=== PATIENT | male | born 1940 | race Caucasian/White ===

== ENCOUNTER 2020-04-18 17:55 | Inpatient (IN) | payer MEDICARE, BC, SELFPAY ==
[2020-04-18 17:55] VITALS: BP 159/76; PULSE 75; RESP 16; TEMP 37.1; O2SAT 98; BMI 25.7
--- NOTE | 2020-04-18 18:10 | ECG_ITS ---
APPROVED REPORT Exam: Resting ECG HR:75 bpm ECG Measurements Heart Rate 75 AXES MT 238 P 27 QRSd 102 QRS 60 QT 406 T -36 QTc 453 Conclusion Sinus rhythm with 1st degree AV block Nonspecific ST and T wave abnormality Abnormal ECG Electronically signed by : Mark Rothman, 04/19/2020 08:03:12
--- NOTE | 2020-04-18 18:12 | CT_ITS ---
PROCEDURE: CT HEAD/BRAIN WO CON CLINICAL INDICATION: PAIN Severe headache COMPARISON: No exams were available for comparison TECHNIQUE: Axial images obtained. All CT scans at the facility use one or more dose reduction, viz: automated exposure control, ma/kV adjustment per patient size (including targeted exams where dose is matched to indication, i.e. head), or iterative reconstruction technique. FINDINGS: No midline shift, mass effect, intracranial hemorrhage, hydrocephalus, or extra-axial fluid collection is evident. There is generalized atrophy with hypoattenuation of the periventricular white matter consistent with microangiopathic changes.. There is calcification of the left vertebral artery and of the carotid arteries in the cavernous region. The calvarium has an unremarkable appearance. There is sclerosis of the left mastoid air cells with mild opacification suggesting chronic inflammatory changes. There is also bilateral pinna calcification. Mild mucosal thickening ethmoid sinuses. IMPRESSION: No acute intracranial finding Dictated by: Vincent Rebollar MD 04/19/2020 05:16 Vincent Rebollar MD in [facility] 04/19/2020 05:16
--- NOTE | 2020-04-18 18:12 | CT_ITS ---
PROCEDURE: CT CERVICAL SPINE WO CON CLINICAL INDICATION: PAIN Neck pain COMPARISON: No exams were available for comparison TECHNIQUE: Axial images obtained with sagittal and coronal reformats. All CT scans at the facility use one or more dose reduction, viz: automated exposure control, ma/kV adjustment per patient size (including targeted exams where dose is matched to indication, i.e. head), or iterative reconstruction technique. Axial spiral CT scanning performed of the cervical spine beginning at the base of the skull and continuing to the upper T-spine. 3-D multiplanar reconstruction with 3-D manipulation of volumetric data set in image rendering was completed by the radiologist and/or technologist with the supervision of the radiologist on independent workstation. FINDINGS: There is straightening cervical lordosis. No fracture or dislocation is evident. Mild prominent calcification of the transverse ligament region at C1-C2. C2-C3: Degenerative disc disease with mild partially calcified bulging disc. C3-C4: Severe degenerative disc disease with endplate hypertrophic changes with canal stenosis and bilateral lateral recess and foraminal narrowing secondary to disc osteophyte complexes right slightly larger than left. C4-C5: Degenerative disc disease with bulging disc with facet and ligamentum hypertrophy with bilateral foraminal narrowing. 3 mm anterolisthesis of C4. C5-C6: Degenerative disc disease with partially calcified bulging disc with borderline canal stenosis and bilateral foraminal narrowing. C6-C7: Degenerative disc disease with bulging disc slightly eccentric toward the left with bilateral foraminal narrowing left greater than right and canal stenosis. There is a Schmorl's node along the inferior endplate of C6. C7-T1: Degenerative disc disease. There is an old fracture involving the tip spinous process T1 Lung apices are clear. The thyroid gland is enlarged and heterogeneous. The right lobe is larger than the left with ill-defined nodule on the right at 1.7 cm and may be better evaluated with ultrasound. IMPRESSION: 1. No acute fracture. 2. Multilevel cervical spondylosis with degenerative disc disease, uncovertebral and facet hypertrophy with bulging disc resulting in canal stenosis lateral recess and foraminal narrowing. Please see above for detailed description at each level. 3. Old fracture involving the tip of the spinous process of T1 Dictated by: Vincent Rebollar MD 04/19/2020 05:24 Vincent Rebollar MD in [facility] 04/19/2020 05:24
--- NOTE | 2020-04-18 18:13 | XR_ITS ---
PROCEDURE: XR CHEST PORTABLE CLINICAL HISTORY: GENERALIZED FATIQUE COMPARISON: No exams were available for comparison FINDINGS: The cardiomediastinal silhouette and pulmonary vascularity are within normal limits. The lungs are clear without infiltrates, suspicious nodules, or pleural effusions. No acute bony abnormalities. IMPRESSION: No acute findings. Dictated by: Vincent Rebollar MD 04/19/2020 07:15 Vincent Rebollar MD in [facility] 04/19/2020 07:15
[2020-04-18 18:15] VITALS: BP 162/67; PULSE 73; O2SAT 99
--- NOTE | 2020-04-18 18:28 | PC.NURSE ---
Rad at bedside
[2020-04-18 18:30] VITALS: BP 157/63; PULSE 70; RESP 20; O2SAT 97
[2020-04-18 18:30] LABS: Basophils % 0.5 % (0.1-2.0); Eosinophils # 0.1 K/mm3 (0.0-0.4); Eosinophils % 1.4 % (0.1-12.0); Hematocrit 27.4 % (42.0-52.0); Hemoglobin 8.8 g/dL (14.1-18.0); Lymphocytes # 0.6 K/mm3 (0.7-4.5); Mean Corpuscular Hemoglobin 30.6 pg (27.0-31.2); Mean Corpuscular Volume 95.7 fl (80-94); Mean Platelet Volume 8.7 fl (7.4-10.4); Monocytes # 0.4 K/mm3 (0.1-1.0); Neutrophils # 3.4 K/mm3 (1.8-7.8); Platelet Count 135 K/mm3 (142-424); Red Blood Count 2.87 M/mm3 (4.60-6.20); Red Cell Distribution Width 13.2 % (11.5-17.5); White Blood Count 4.4 K/mm3 (4.8-10.8)
[2020-04-18 18:36] LABS: Anion Gap 13.3 mEq/L (5-15); Blood Urea Nitrogen 41 mg/dl (9-20); Calcium 8.5 mg/dl (8.4-10.2); Carbon Dioxide 20 mmol/L (22.0-30.0); Chloride 106 mmol/L (98-107); Creatinine Clearance Estimated 26 mL/min (50-200); Estimated Glomerular Filt Rate 22 ml/min (>60); GFR (African American) 27 ML/MIN (>60); Glucose 236 mg/dl (74-100); Potassium 4.3 mmoL/L (3.5-5.1); Sodium 135 mmol/L (136-145)
--- NOTE | 2020-04-18 18:37 | PC.NURSE ---
Pt to rad.
[2020-04-18 18:51] LABS: Troponin I 0.56 ng/ml (0.00-0.034)
[2020-04-18 19:07] VITALS: BP 147/63; PULSE 73; O2SAT 98
[2020-04-18 19:29] LABS: Coronavirus 19 IgG Antibody Negative (Negative); Coronavirus 19 IgM Antibody Negative (Negative)
--- NOTE | 2020-04-18 20:33 | HMH.EDWEAK ---
ED Disposition Clinical Impression: Non-STEMI (non-ST elevated myocardial infarction) Anemia Qualifiers: Anemia type: due to chronic kidney disease Chronic kidney disease stage: stage 4 (severe) Qualified Code(s): N18.4 - Chronic kidney disease, stage 4 (severe); D63.1 - Anemia in chronic kidney disease Diabetes mellitus Qualifiers: Diabetes mellitus type: type 2 Diabetes mellitus intermediate project manager insulin use: unspecified intermediate project manager insulin use status Diabetes mellitus complication status: with other specified complication Qualified Code(s): E11.69 - Type 2 diabetes mellitus with other specified complication Disposition: Admitted as Observation Condition on Discharge: Good Referrals: Tate Rivero [Primary Care Provider] - - Critical Care Critical Care Time: No Attestation: On 04/18/20, the high probability of a clinically significant, sudden or life threatening deterioration of the following system(s) required my full and direct attention, intervention and personal management. The time I documented below is in addition to time spent performing reported procedures but includes the following listed in this critical care notation. Medical Decision Making - Medical Records Medical records reviewed: Yes: I reviewed the patient's medical records. - Ferm[place] Inquiry Pt receiving controlled substance: No Vital Signs: 04/18/20 17:55 04/18/20 18:15 04/18/20 18:30 Temperature 98.8 F Temperature Source Oral Pulse Rate [Radial] 75 73 70 Respiratory Rate 16 20 Blood Pressure [Right Arm] 159/76 H 162/67 H 157/63 H Blood Pressure Mean [Right Arm] 103 98 94 Blood Pressure Source [Right Arm] Automatic Cuff Automatic Cuff Blood Pressure Position [Right Arm] Sitting Sitting 02 Sat by Pulse Oximetry 98 99 97 Oxygen Delivery Method Room Air Room Air Room Air 04/18/20 19:07 Temperature Temperature Source Pulse Rate [Radial] 73 Respiratory Rate Blood Pressure [Right Arm] 147/63 H Blood Pressure Mean [Right Arm] 91 Blood Pressure Source [Right Arm] Automatic Cuff Blood Pressure Position [Right Arm] Sitting 02 Sat by Pulse Oximetry 98 Oxygen Delivery Method Room Air - Lab Data Lab results reviewed: Yes: I reviewed the patient's lab results. Lab Results 04/18/20 18:15: WBC 4.4 L, RBC 2.87 L, Hgb 8.8 L, Hct 27.4 L, MCV 95.7 H, MCH 30.6, MCHC 32.0, RDW 13.2, Plt Count 135 L, MPV 8.7, Neut % (Auto) 77.0, Lymph % (Auto) 13.0, Trimble % (Auto) 8.0, Eos % (Auto) 1.4, Baso % (Auto) 0.5, Neut # (Auto) 3.4, Lymph # (Auto) 0.6 L, Trimble # (Auto) 0.4, Eos # (Auto) 0.1, Baso # (Auto) 0.0 04/18/20 18:15: Sodium 135 L, Potassium 4.3, Chloride 106, Carbon Dioxide 20 L, Anion Gap 13.3, BUN 41 H, Creatinine 2.80 H, Estimated Creat Clear 26, Estimated GFR 22 L, Est GFR ( Amer) 27 L, Glucose 236 H, Calcium 8.5, Troponin I 0.56 H 04/18/20 18:15: SARS-CoV-2 IgG Ab (Rapid) Negative, SARS-CoV-2 IgM Ab (Rapid) Negative 04/18/20 18:15: TSH 0.80, Thyroxine (T4) 5.6 04/18/20 21:27: Troponin I 0.60 H Result diagrams: 04/18/20 18:15 04/18/20 18:15 Orders (Tests/Meds): ED MEDICATIONS Discontinued Medications Generic Name Dose Route Start Last Admin Trade Name Freq PRN Reason Stop Dose Admin Aspirin 324 mg 04/18/20 19:04 04/18/20 19:05 Aspirin 81mg Chewable Tablet PO 04/18/20 19:05 324 mg ONCE ONE Administration ORDERS Category Date Time Status CT cervical spine wo con Stat Cat Scan 04/18/20 18:[address] head/brain wo con Stat Cat Scan 04/18/20 18:12 Taken XR chest portable Stat Exams 04/18/20 18:13 Taken Troponin I Q3H Lab 04/19/20 00:15 Ordered - Radiology Data #1 Image(s): Chest Image Reviewed: Yes I reviewed the patient's radiology image Preliminary Findings: Abnormal (cm ) - CT Data CT Scan: Head, C-Spine Time Received: 22:[address] Reviewed: Yes: I have viewed the radiologist's interpretation Preliminary Findings: Abnormal (abn djd with stenosis and facet/foraminal changes ) - ECG Da
[2020-04-18 21:04] LABS: T4 (Thyroxine) 5.6 ug/dl (5.53-11.0)
--- NOTE | 2020-04-18 22:04 | PC.NURSE ---
Trop called from LAB reported to Dr Patton
--- NOTE | 2020-04-18 22:08 | PC.NURSE ---
Dr Patton speaking with Dr Carreno with pt trop
--- NOTE | 2020-04-18 22:50 | PC.NURSE ---
Dr Patton spoke with Dr Farley for admission
[2020-04-18 23:17] LABS: Alanine Aminotransferase 16 U/L (12-78); Albumin Level 3.6 g/dl (3.5-5.0); Alkaline Phosphatase 74 U/L (38-126); Aspartate Amino Transferase 23 U/L (17-59); Bilirubin,Direct 0.1 mg/dl (0.0-0.4); Bilirubin,Indirect 0.2 mg/dL (0.0-0.9); Bilirubin,Total 0.3 mg/dl (0.2-1.3); Bilirubin,Unconjugated 0.2 mg/dL (0.0-1.1); Total Protein,Serum 6.7 g/dl (6.3-8.2)
[2020-04-18 23:19] LABS: Prothrombin Time 11.1 seconds (9.4-11.8)
[2020-04-19] VITALS (27 sets, daily range): BP systolic 120–173; BP diastolic 52–87; PULSE 60–90; RESP 16–18; TEMP 36.6–37.1; O2SAT 92–100; BMI 26.4; BMI 26.5
--- NOTE | 2020-04-19 | IR_ITS ---
APPROVED REPORT Patient Location: Inpatient PROCEDURES Left heart catheterization Selective coronary angiogram Drug-eluting stent deployment to the proximal LAD Intravascular ultrasound of the LAD INDICATION Acute non-ST elevation myocardial infarction, Severe ischemic heart disease Informed consent was obtained prior to the procedure. COMPLICATIONS none Estimated Blood Loss: less than 10 mls TECHNIQUE One percent lidocaine used to anesthetize the right anterior aspect of the wrist. The right radial artery was accessed via the Seldinger technique. A 6 Macanese sheath was placed in the right radial artery. 2.5 mg of verapamil, 800 mcg of nitroglycerin, 1mg Lidocaine and 5000 U Heparin were given through the arterial sheath. The trap catheter was also used to perform left heart catheterization, left ventriculogram and selective coronary angiogram. At the end of the procedure therapeutic heparin was administered and a JL 3 guide catheter was placed in the left main artery. A Choice PT wire was placed distally in the LAD. Primary stenting could not be performed therefore a 2.5 mm balloon was used to predilate the stenosis. Following this the guide liner was advanced into the proximal LAD where a 2.75 x 12 mm resolute Haider stent was deployed at 24 radha reducing the critical stenosis to 0% by angiography. Because of the proximity and juxtaposition of the stent to the left main artery an intravascular ultrasound probe was advanced. This demonstrated excellent apposition of the stent with good expansion and excellent transitioning into the distal vessel. This further demonstrated the LAD stent did not encroach upon flow of the large circumflex artery. At the end of the procedure the apparatus was removed the sheath was removed good hemostasis was achieved using TR banding patient was transferred to the postop putting her stable condition ANGIOGRAPHIC RESULTS The left main artery Short and normal The left anterior descending artery Has an ostial proximal calcified 90% stenosis followed by a mid vessel stent which is widely patent with minimal in-stent restenosis. Distally the vessel is patent. The circumflex artery Is possibly dominant large vessel with proximal 20 and 30% stenoses. 20% stenoses are present in the second obtuse marginal artery. The right coronary artery Proximally occluded. The distal vessel appears to be collateralized from the circumflex artery and probably a portion of the LAD although due to the renal failure the LAD was not completely opacified The WOODWARD ventriculogram reveals Not performed The left ventricular end-diastolic pressure 35 mmHg IMPRESSION Critical proximal LAD disease Successful stenting of the proximal LAD critical disease reduced to 0% with 1 drug-eluting stent Chronically occluded right coronary artery which fills via [id number] collaterals Elevated LVEDP PLAN 1. Brilinta and aspirin 2. Patient would probably benefit from some diuresis in order to decrease left-sided filling pressures while making sure renal failure does not progress 3. Cardiac rehabilitation 4. Echocardiogram 5. Avoidance of tobacco products 6. LDL less than 55 Electronically signed by : Vincent Carreno, 04/19/2020 11:41:45
--- NOTE | 2020-04-19 00:20 | PC.NURSE ---
PT ARRIVED TO FLOOR VIA W/C FROM ED W/STAFF AT 0017
[2020-04-19 01:59] LABS: Troponin I 0.47 ng/ml (0.00-0.034)
[2020-04-19 02:57] LABS: Hemoglobin A1C 5.8 % (4.0-6.0)
--- NOTE | 2020-04-19 04:07 | PC.NURSE ---
Pt is A&Ox4 and has ambulated in room and to the bathroom independently and tolerated well. Pt has continued to c/o pain to back of neck and is requesting topical arthritis aid, such as biofreeze. This is not available in any omni and pt offered PRN tylenol or warm blanket, however pt refused. Pt stated he was alright and wanted to lay down and get some sleep. Pt has been asleep since 0200 and resting quietly. VSS. 3rd troponin trending down. NS infusing @ 50ml/hr peripheral IV in LAC. Call light within reach
[2020-04-19 05:03] LABS: POC Glucose,Bedside 230 (70-110)
--- NOTE | 2020-04-19 06:44 | HMH.PHAVTE ---
[facility] VTE Monitoring - Patient Demographics Admission date: 04/18/20 Report Date: 04/19/20 Time: 06:44 Allergies/Adverse Reactions: Patient Allergies Penicillins Allergy (Intermediate, Verified 04/19/20 04:06) Height: 1.8 m Weight: 86.092 kg Patient Problems: Current Active Problems Non-STEMI (non-ST elevated myocardial infarction) (Acute) Anemia (Acute) Diabetes mellitus (Acute) - VTE Risk Labs: VTE Related Lab Results Hgb 8.8 g/dL (14.1-18.0) L 04/18/20 18:15 Hct 27.4 % (42.0-52.0) L 04/18/20 18:15 Plt Count 135 K/mm3 (142-424) L 04/18/20 18:15 PT 11.1 seconds (9.4-11.8) 04/18/20 18:15 INR 1.00 (0.9-1.1) 04/18/20 18:15 BUN 41 mg/dl (9-20) H 04/18/20 18:15 Creatinine 2.80 mg/dl (0.66-1.25) H 04/18/20 18:15 Estimated Creat Clear 26 mL/min (50-200) 04/18/20 18:15 VTE Score: 5 VTE Risk Level: Low Risk - Prophylaxis VTE Prophylaxis Ordered?: Yes Types of VTE Prophylaxis: TEDS Knee High Location of Applied Device: Bilateral Lower Extremeties
[2020-04-19 07:10] LABS: Basophils % 0.4 % (0.1-2.0); Eosinophils # 0.2 K/mm3 (0.0-0.4); Eosinophils % 2.9 % (0.1-12.0); Hematocrit 28.7 % (42.0-52.0); Hemoglobin 9.5 g/dL (14.1-18.0); Lymphocytes # 0.5 K/mm3 (0.7-4.5); Lymphocytes % 10.3 % (10-50); Mean Corpuscular Hemoglobin 31.4 pg (27.0-31.2); Mean Platelet Volume 9.1 fl (7.4-10.4); Monocytes # 0.5 K/mm3 (0.1-1.0); Monocytes % 8.9 % (1.7-9.3); Neutrophils # 4.1 K/mm3 (1.8-7.8); Neutrophils % 77.6 % (37.0-80.0); Platelet Count 148 K/mm3 (142-424); Red Blood Count 3.02 M/mm3 (4.60-6.20); Red Cell Distribution Width 13.5 % (11.5-17.5); White Blood Count 5.2 K/mm3 (4.8-10.8)
[2020-04-19 07:14] LABS: Chloride 110 mmol/L (98-107); Sodium 137 mmol/L (136-145)
[2020-04-19 07:15] LABS: Potassium 4.1 mmoL/L (3.5-5.1)
[2020-04-19 07:17] LABS: Anion Gap 10.1 mEq/L (5-15); Blood Urea Nitrogen 34 mg/dl (9-20); Carbon Dioxide 21 mmol/L (22.0-30.0); Creatinine Clearance Estimated 27 mL/min (50-200); Estimated Glomerular Filt Rate 23 ml/min (>60); GFR (African American) 28 ML/MIN (>60)
[2020-04-19 07:18] LABS: Calcium 8.6 mg/dl (8.4-10.2); Cholesterol 133 mg/dl (140-200); Glucose 138 mg/dl (74-100); Magnesium 1.7 mg/dl (1.6-2.3); Triglycerides 69 mg/dl (30-150); VLDL Cholesterol 14 mg/dL (0-40)
--- NOTE | 2020-04-19 08:00 | CA_ITS ---
APPROVED REPORT EXAM: Comprehensive 2D, Doppler, and color-flow Echocardiogram Automotive Service Cashier: Kandice Man, RT(R) Ht: 5 ft 11 in Wt: 185lbs BSA: 2.04 BP: 147/63 mmHg Indications: NSTEMI, neck pain, CP, fatigue 2D Dimensions LVOT 1.97 cm (M/F) 1.5-2.5 LVEF (Wan's) 66.20 % M: 52 - 72 LV Volume 119.10 mL M: 62 - 150 LV Volume Index 58.38 mL/m2 M: 34 - 74 M-Mode Dimensions RVDd 3.13 cm (0.9-2.6) LA Diam 3.67 cm (1.9-4.0) LVDd 4.42 cm (3.5-5.7) Ao Diam 3.07 cm (2.0-3.7) LVDs 3.22 cm (3.5-5.7) IVSd 1.21 cm (0.6-1.1) PWd 0.88 cm (0.6-1.1) EF (Teich) 53.00% FS 27.10% EDV (Teich) 88.60 mL ESV (Teich) 41.60 mL LV Diastology E Decel Time 203.00 (160-240 msec) E/A Ratio 0.8 MED E' 8.60 (< 7 cm/sec) E'/MED E' Ratio 14.85 (>14) LAT E' 9.50 (<10 cm/sec) E/LAT E' Ratio 13.44 (>14) Mitral Valve MV E Max Salo. 128.00 (40-130 cm/s) MV A Velocity 160.00 (40-130 cm/s) E/A Ratio 0.80 MV Decel. Time 203.00 (160-240 ms) MV PHT 60.00 ms Left Ventricle Left atrium is mildly enlarged, left ventricle is normal size, mild concentric left ventricular hypertrophy, visually estimated ejection fraction 55% with no regional wall motion abnormality, grade 1 diastolic dysfunction seen with tissue Doppler evidence of raise left atrial pressure. Right Ventricle Right atrium and right ventricular qualitatively mildly enlarged with normal contractility. Aortic Valve Aortic valve is thickened and calcified without Doppler evidence of aortic stenosis or aortic insufficiency. Mitral Valve Mitral valve leaflets are minimally thickened, there is mild mitral regurgitation. Tricuspid Valve Tricuspid valve is grossly normal, there is mild tricuspid regurgitation, tricuspid regurgitation jet velocity is inadequate for calculation of the right ventricular systolic pressure. Pulmonic Valve Pulmonic valve is poorly visualized. Great Vessels Aortic root is normal size. Pericardium No significant pericardial effusion noted Conclusion 1. Mildly enlarged left atrium, normal left ventricular size, mild concentric left ventricular hypertrophy, visually estimated ejection fraction 55% with no regional wall motion abnormality, grade 1 diastolic dysfunction seen with tissue Doppler evidence of raise left atrial pressure. 2. Thickened and calcified aortic valve without aortic stenosis or aortic insufficiency. 3. Mild mitral and tricuspid regurgitation. 4. No significant pericardial effusion noted, inferior vena cava is mildly dilated without significant inspiratory collapse. Electronically signed by : Gregory Boone, 04/19/2020 11:45:08
[2020-04-19 08:06] LABS: Chol/HDL Ratio 2.4 (1-3.5); HDL Cholesterol 56 mg/dl (40-60)
[2020-04-19 08:17] LABS: Direct LDL Cholesterol 56.79 mg/dL (100-129)
--- NOTE | 2020-04-19 08:17 | HMH.CNCARD ---
History of Present Illness Consult date: 04/19/20 Requesting physician: Elmer Farley Consult reason: chest pain Chief complaint: Bilateral shoulder pain radiating to the neck Additional Medical History:: 1. Non-STEMI (04/19/2020) a. Elevated troponins 2. Bilateral shoulder pain a. Arthritis 3. Chronic Renal Failure a. Creatinine 2.70 b. Diagnosed 35 years ago 4. Diabetes a. A1C 5.8 5. Essential Hypertension 6. Hyperlipidemia a. Statin therapy. History of present illness: 79-year-old male presented to ED last evening complaining of bilateral shoulder pain radiating up the neck. 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 Patient states with these episodes he does have shortness of breath. Patient denies dizziness or palpitations. Upon this assessment patient denies chest pain, tightness or pressure. Patient denies shortness of breath. No swelling of the lower extremities noted. Patient does have chronic renal failure. Creatinine 2.70 and BUN 34. Patient stated he was diagnosed with chronic renal failure 35+ years ago and does see a computer technologist in [place]. Patient has history of diabetes. Patient states his diabetes is controlled with medications. A1c 5.8. Patient states he was last seen by lock corner machine operator a few years ago. Patient does have history of CAD. Patient states he did have a coronary stent placed in 1994. Patient is a non-smoker. Initial ED work-up was performed. Hemoglobin was noted is 8.8 with hematocrit of 27.4. This a.m. hemoglobin is 9.5 with a hematocrit of 28.7. Elevated troponins noted. Initial EKG revealed normal sinus rhythm with first-degree AV block with a heart rate of 74 bpm. Chest x-ray revealed no acute findings. CT scan of the head revealed no acute intracranial findings. Discussed plan of care with Dr. Carreno. Recommend left heart catheterization today due to elevated troponins and bilateral shoulder pain. Will obtain echocardiogram to assess LV function and valve status. Due to patient's chronic renal failure will increase his IV fluids of normal saline to 150 mL's per hour. Discussed the benefits and risk of a left heart cath with access through the right radial. Patient is agreeable to left heart cath today. Depending on the results of the left heart cath and echocardiogram will defer medication changes or treatment therapy at that time.. Thank you for letting cardiology participate in the care of this patient. [facility] History I have reviewed the patient's past medical history: Yes Medical History: Reports:: Coronary Artery Disease, Diabetes Mellitus Type 2, Hyperlipidemia, Hypertension Denies:: Cancer, MRSA *Have you ever received a pneumonia vaccine?: No *Have you received a flu vaccine this season?: No Other Medical History: Reports: Cataracts Other Surgeries: Yes: Coronary Stent, Other (Right carotid surgery) - *Social History Alcohol Intake: never *Occupational Status:: retired Housing: house *Travel in the last 8 weeks: None Family Hx:: Cancer, Coronary Artery Disease, Diabetes, Kidney Disease Meds Home Medications Medication Instructions Recorded Confirmed Type Aspirin [Aspirin 325mg Tab] 325 mg PO HS 04/18/20 04/19/20 History Clopidogrel Bisulfate [Plavix] 75 mg PO DAILY 04/18/20 04/19/20 History Doxazosin Mesylate [Doxazosin 2mg 4 mg PO HS 04/18/20 04/19/20 History Tab] Liraglutide [Victoza 2-Virgilio] 1.8 mg SQ HS 04/18/20 04/19/20 History Simvastatin 10 mg PO DAILY 04/18/20 04/19/20 History Sitagliptin Phosphate [Januvia 50 mg PO BID 04/18/20 04/19/20 History 50mg tablet] Tamsulosin HCl [Flomax 0.4mg 0.4 mg PO DAILY 04/18/20 04/19/20 History capsule] dilTIAZem HCL [Cartia Xt] 240 mg PO DAILY 04/18/20 04/19/20 History glipiZIDE [Glipizide Xl] 5 mg PO HS 04/18/20 04/19/20 History Cholecalciferol (Vitamin D3) 4,000
--- NOTE | 2020-04-19 09:13 | HMH.HP ---
*Admission Date: 04/18/20 <Khushi Boston - 04/19/20 09:16> *Chief complaint: back pain <Khushi Boston - 04/19/20 09:16> *History of present illness: 79-year-old male presented to ED last evening complaining of bilateral shoulder pain radiating up the neck. 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 Patient states with these episodes he does have shortness of breath. Patient denies dizziness or palpitations. Upon this assessment patient denies chest pain, tightness or pressure. Patient denies shortness of breath. No swelling of the lower extremities noted. Patient does have chronic renal failure. Creatinine 2.70 and BUN 34. Patient stated he was diagnosed with chronic renal failure 35+ years ago and does see a commercial announcer in [place]. Patient has history of diabetes. Patient states his diabetes is controlled with medications. A1c 5.8. Patient states he was last seen by manager oracle a few years ago. Patient does have history of CAD. Patient states he did have a coronary stent placed in 1994. Patient is a non-smoker. Initial ED work-up was performed. Hemoglobin was noted is 8.8 with hematocrit of 27.4. This a.m. hemoglobin is 9.5 with a hematocrit of 28.7. Elevated troponins noted. Initial EKG revealed normal sinus rhythm with first-degree AV block with a heart rate of 74 bpm. Chest x-ray revealed no acute findings. CT scan of the head revealed no acute intracranial findings. Discussed plan of care with Dr. Carreno. Recommend left heart catheterization today due to elevated troponins and bilateral shoulder pain. Will obtain echocardiogram to assess LV function and valve status. Due to patient's chronic renal failure will increase his IV fluids of normal saline to 150 mL's per hour. Discussed the benefits and risk of a left heart cath with access through the right radial. Patient is agreeable to left heart cath today. Depending on the results of the left heart cath and echocardiogram will defer medication changes or treatment therapy at that time. (above as per Cardiology) <Khushi Boston - 04/19/20 11:22> [facility] History I have reviewed the patient's past medical history: Yes <Khushi Boston - 04/19/20 11:22> Medical History: Reports:: Coronary Artery Disease, Diabetes Mellitus Type 2, Hyperlipidemia, Hypertension Denies:: Cancer, MRSA <Khushi Boston 04/19/20 09:16> *Have you ever received a pneumonia vaccine?: No <Khushi Boston 04/19/20 09:16> *Have you received a flu vaccine this season?: No <Khushi Boston 04/19/20 09:16> Other Medical History: Reports: Cataracts <Khushi Boston 04/19/20 09:16> Other Surgeries: Yes: Coronary Stent, Other (Right carotid surgery, left ear surgery, right hand surgery) <Khushi Boston 04/19/20 11:22> - *Social History Smoking Status: Former smoker <Khushi Boston 04/19/20 11:22> Alcohol Intake: never <Khushi Boston 04/19/20 09:16> *Occupational Status:: retired <Khushi Boston 04/19/20 09:16> Housing: house <Khushi Boston 04/19/20 09:16> *Travel in the last 8 weeks: None <Khushi Boston 04/19/20 09:16> Family Hx:: Cancer, Coronary Artery Disease, Diabetes, Kidney Disease <Khushi Boston 04/19/20 09:16> Review of Systems - Constitutional Reports weakness, Denies fever(s) <Khushi Boston 04/19/20 11:22> - Eyes Denies blurry vision, Denies double vision <Khushi Boston 04/19/20 11:22> - ENT Denies nasal congestion, Denies sore throat <Khushi Boston 04/19/20 11:22> - *Cardiovascular Reports shortness of breath, Denies chest pain, Denies leg swelling <Khushi Boston 04/19/20 11:22> - *Respiratory Reports shortness of breath, Reports shortness of breath with activity, Denies cough <Khushi Boston 04/19/20 11:22> - *Gastrointestinal Denies abdominal pain, Denies loose stools, Denies nausea, Denies vomiting <Khushi Boston 04/19/20 11:22> - *
--- NOTE | 2020-04-19 10:49 | PC.NURSE ---
PT TO RN SURGICAL PCU
--- NOTE | 2020-04-19 10:51 | HMH.PHAINT ---
Medication reconcilation completed using medication list from physician office and pharmacy claims data.
[2020-04-19 11:23] LABS: POC Glucose,Bedside 142 (70-110)
[2020-04-19 11:54] LABS: CATHL Activated Clotting Time 287 SEC (74-125)
[2020-04-19 11:56] LABS: CATHL Activated Clotting Time 224 SEC (74-125)
--- NOTE | 2020-04-19 12:41 | PC.NURSE ---
Spoke with Colten Harrison RN in [employer]. Pt received stents during cath. Per Dr Carreno, pt does not have to be transferred to Step-Down. being placed on youth nutritional monitor is ok.
--- NOTE | 2020-04-19 15:46 | PC.NURSE ---
IS A0X4 BUT VERY DROWSY FOLLOWING HEART CATH, RIGHT RADIAL BAND IN PLACE T TIME OF WRITING WITH 3ML OF AIR NOTED, NO SINS OF OBVIOUS BLEEDING, ONE STENT PLACED TO THE LAD, PT DENIES PAIN, VSS, WILL CONTINUE TO MONITOR.
--- NOTE | 2020-04-19 16:21 | PC.NURSE ---
radial band off 1600, telfa+tegaderm in place, no drainage or bleeding noted.
[2020-04-19 16:23] LABS: POC Glucose,Bedside 174 (70-110)
[2020-04-19 16:23] LABS: POC Glucose,Bedside 172 (70-110)
[2020-04-19 21:06] LABS: POC Glucose,Bedside 261 (70-110)
[2020-04-20] VITALS: BP 157/70; PULSE 75; PULSE 79; RESP 16; TEMP 36.9; O2SAT 95
[2020-04-20 04:00] VITALS: BP 137/68; PULSE 75; PULSE 79; RESP 16; TEMP 36.9; O2SAT 95
[2020-04-20 05:13] VITALS: BMI 26.6
--- NOTE | 2020-04-20 05:16 | PC.NURSE ---
pt has rested well t/o shift, has not complained of SOA, chest pain, or pain, dressing in place on right radial cath site, C/D/I, radiographer cardiac catheterization shows first degree AV block, systolic BP 137-157, HR 78-79
--- NOTE | 2020-04-20 05:28 | PC.NURSE ---
lung sounds CTA
[2020-04-20 05:48] LABS: POC Glucose,Bedside 179 (70-110)
[2020-04-20 07:04] LABS: Basophils % 0.3 % (0.1-2.0); Eosinophils # 0.1 K/mm3 (0.0-0.4); Eosinophils % 2.6 % (0.1-12.0); Hemoglobin 8.4 g/dL (14.1-18.0); Lymphocytes # 0.7 K/mm3 (0.7-4.5); Lymphocytes % 16.5 % (10-50); Mean Corpuscular HGB Conc 32.2 g/dL (31.8-35.4); Mean Corpuscular Hemoglobin 30.6 pg (27.0-31.2); Mean Corpuscular Volume 95.2 fl (80-94); Mean Platelet Volume 9.3 fl (7.4-10.4); Monocytes # 0.3 K/mm3 (0.1-1.0); Monocytes % 7.4 % (1.7-9.3); Neutrophils # 3.1 K/mm3 (1.8-7.8); Neutrophils % 73.1 % (37.0-80.0); Platelet Count 149 K/mm3 (142-424); Red Blood Count 2.74 M/mm3 (4.60-6.20); Red Cell Distribution Width 13.5 % (11.5-17.5); White Blood Count 4.2 K/mm3 (4.8-10.8)
[2020-04-20 07:07] LABS: Chloride 110 mmol/L (98-107); Sodium 137 mmol/L (136-145)
[2020-04-20 07:08] LABS: Potassium 4.3 mmoL/L (3.5-5.1)
[2020-04-20 07:10] LABS: Blood Urea Nitrogen 33 mg/dl (9-20); Creatinine Clearance Estimated 27 mL/min (50-200); Estimated Glomerular Filt Rate 22 ml/min (>60); GFR (African American) 27 ML/MIN (>60)
[2020-04-20 07:11] LABS: Anion Gap 9.3 mEq/L (5-15); Calcium 8.5 mg/dl (8.4-10.2); Carbon Dioxide 22 mmol/L (22.0-30.0); Glucose 157 mg/dl (74-100)
[2020-04-20 08:00] VITALS: BP 149/74; PULSE 75; PULSE 80; RESP 16; TEMP 36.8; O2SAT 96
--- NOTE | 2020-04-20 09:53 | HMH.ACPN2 ---
Internal Medicine - PN: Subj *Date: 04/20/20 *Time: 09:53 Interval history: Heart cath report reviewed. Feels much better this AM. Was able to sleep last night. Neck and shoulder pain improved, just sore . Exam Vital signs and Labs for Last 24 Hours: Temp Pulse Resp BP Pulse Ox 98.3 F 80 16 149/74 H 96 04/20/20 08:00 04/20/20 08:00 04/20/20 08:00 04/20/20 08:00 04/20/20 08:00 Laboratory Results - last 24 hr 04/19/20 06:46: POC Glucose 142 H 04/19/20 11:10: Activated Clotting Time 287 H* 04/19/20 11:27: Activated Clotting Time 224 H* D 04/19/20 13:24: POC Glucose 172 H 04/19/20 16:12: POC Glucose 174 H 04/19/20 20:48: POC Glucose 261 H 04/20/20 05:41: POC Glucose 179 H 04/20/20 06:53: WBC 4.2 L, RBC 2.74 L, Hgb 8.4 L, Hct 26.0 L, MCV 95.2 H, MCH 30.6, MCHC 32.2, RDW 13.5, Plt Count 149, MPV 9.3, Neut % (Auto) 73.1, Lymph % (Auto) 16.5, [place] % (Auto) 7.4, Eos % (Auto) 2.6, Baso % (Auto) 0.3, Neut # (Auto) 3.1, Lymph # (Auto) 0.7, [place] # (Auto) 0.3, Eos # (Auto) 0.1, Baso # (Auto) 0.0 04/20/20 06:53: Sodium 137, Potassium 4.3, Chloride 110 H, Carbon Dioxide 22, Anion Gap 9.3, BUN 33 H, Creatinine 2.80 H, Estimated Creat Clear 27, Estimated GFR 22 L, Est GFR ( Amer) 27 L, Glucose 157 H, Calcium 8.5 I & O for Last 24 hours: Intake & Output 04/17/20 04/18/20 04/19/20 04/20/20 11:59 11:59 11:59 11:59 Intake Total 700 / 700 1045 / 1045 Output Total 250 / 250 Balance 450 / 450 1045 / 1045 Weight 189 lb 12.8 oz 190 lb 4.143 oz Narrative: Sitting up in bed, awake and alert. Appears in no distress. Lungs are clear to auscultation. Heart is regular with no ectopy. Extremities no edema. 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 supervisor insulin use: unspecified custodial insulin use status Diabetes mellitus complication status: with other specified complication Qualified Code(s): E11.69 - Type 2 diabetes mellitus with other specified complication Category: Medical Code(s): E11.9 - Type 2 diabetes mellitus without complications (4) CKD (chronic kidney disease), stage IV Status: Acute Category: Medical Code(s): N18.4 - Chronic kidney disease, stage 4 (severe) (5) Hypertension Status: Acute Category: Medical Code(s): I10 - Essential (primary) hypertension (6) ASCVD (arteriosclerotic cardiovascular disease) Status: Acute Category: Medical Code(s): I25.10 - Atherosclerotic heart disease of [place] coronary artery without angina pectoris - Assessment and plan all Dx Assessment and Plan for all problems:: He is feeling much better and stable for discharge. He will continue on Plavix and aspirin. I discussed his anemia which has been stable during this admission and not worked up any further. Most likely this is chronic related to his chronic kidney disease and he remembers his maintenance representative making note of this. I did advise that he discuss this further with his primary care physician who may have additional insight as to whether he needs further work-up. He tells me his last colonoscopy was 3 years [facility] the [facility].
--- NOTE | 2020-04-20 11:31 | HMH.PHACLD ---
Addendum entered and electronically signed by Rakesh Marroquin PharmD 04/22/20 08:32: MD WAITING ON STARTING [employer] DUE TO PATIENT BEING HYPOTENSIVE ON ADMISSION. WILL ADDRESS AT OFFICE VISIT. Original Note: Osvaldoreese Dewitt Martinez has received discharge medication counseling on the following medications: PATIENT IS CURRENTLY TAKING ASPRIN 81 MG DAILY, PLAVIX 75 MG DAILY, AND SIMVASTATIN 10 MG HS. PATIENT INDICATED DR. FRAZIER IN [place] STOPPED HIS LISINOPRIL 10 MG DAILY AND METFORMIN 1000 MG BID DUE TO KIDNEY FUNCTION EARLIER THIS MONTH.
--- NOTE | 2020-04-22 11:26 | HMH.DCSUM ---
General - General Admission date:: 04/19/20 <Elmer Farley - 05/12/20 21:59> 04/19/20 <José MiguelJennifre - 04/22/20 11:32> Discharge date: 04/20/20 <José MiguelJennifer - 04/22/20 11:32> HPI HPI: Mr. Martinez was a 79-year-old male who presented to [facility] ED last evening complaining of bilateral shoulder pain radiating up the neck. 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 Patient stated with these episodes he did have shortness of breath. Patient denied dizziness or palpitations. Upon assessment patient denied chest pain, tightness or pressure. Patient denied shortness of breath. No swelling of the lower extremities was noted. Patient did have history of chronic renal failure. Creatinine was 2.70 and BUN 34. Patient stated he was diagnosed with chronic renal failure 35+ years ago and followed with a humidifier attendant in [place]. Patient had a history of diabetes. Patient stated his diabetes was controlled with medications. A1c 5.8. Patient stated he was last seen by de icer kit assembler a few years ago. Patient did have a history of CAD. Patient stated he did have a coronary stent placed in 1994. Patient was a non-smoker. Initial ED work-up was performed. Hemoglobin was noted to be 8.8 with hematocrit of 27.4, which increased the following morning to hemoglobin 9.5 with a hematocrit of 28.7. Elevated troponins were noted. Initial EKG revealed normal sinus rhythm with first-degree AV block with a heart rate of 74 bpm. Chest x-ray revealed no acute findings. CT scan of the head revealed no acute intracranial findings. The plan of care was discussed with Dr. Carreno who recommend left heart catheterization due to elevated troponins and bilateral shoulder pain, as well as echocardiogram to assess LV function and valve status. Due to patient's chronic renal failure his IV fluids of normal saline were increased to 150 mL's per hour. Cardiology discussed the benefits and risk of a left heart cath with access through the right radial and patient was agreeable to proceed. <Jennifer Valdez - 04/22/20 11:32> Hospital Course Hospital Course: Patient underwent heart cath with successful stenting. Echo showed EF of 55%. He was diuresed with one dose of Lasix post-op and continued on Plavix with the addition of Aspirin instead of Brilinta. The following morning, 04/20/2020, he was feeling much better and stable for discharge. Cardiac rehab was recommended with cardiology followup in one week. He was advised to follow up with his primary care physician for his anemia which remained stable during his admission. <Jennifer Valdez - 04/22/20 11:43> Objective Vital signs: Temp Pulse Resp BP Pulse Ox 98.3 F 80 16 149/74 H 96 04/20/20 08:00 04/20/20 08:00 04/20/20 08:00 04/20/20 08:00 04/20/20 08:00 <Elmer Farley - 05/12/20 21:59> Temp Pulse Resp BP Pulse Ox 98.3 F 80 16 149/74 H 96 04/20/20 08:00 04/20/20 08:00 04/20/20 08:00 04/20/20 08:00 04/20/20 08:00 <Jennifer Valdez - 04/22/20 11:32> DS: Diagnosis - Discharge Diagnosis (1) Non-STEMI (non-ST elevated myocardial infarction) Status: Acute (2) Anemia Status: Acute (3) Diabetes mellitus Status: Acute (4) CKD (chronic kidney disease), stage IV Status: Acute (5) Hypertension Status: Acute (6) ASCVD (arteriosclerotic cardiovascular disease) Status: Acute <Jennifer Valdez - 04/22/20 11:33> (1) Non-STEMI (non-ST elevated myocardial infarction) Status: Acute (2) Anemia Status: Acute (3) Diabetes mellitus Status: Acute (4) CKD (chronic kidney disease), stage IV Status: Acute (5) Hypertension Status: Acute (6) ASCVD (arteriosclerotic cardiovascular disease) Status: Acute <Elmer Farley - 05/12/20 21:59> Discharge Plan - Patient Discharge Instructions ACTI
== END 2020-04-20 11:55 | disposition home or self-care (01) | DRG 247 ==
LOC: ER 22:58 → 2ND 04-19 08:16
PROVIDERS: Emergency Medicine; Internal Medicine; Admitting Provider Family Medicine; Emergency Provider Emergency Medicine; PCP Family Medicine; Visit Provider Family Medicine
PROC: 027034Z Dilation of Coronary Artery, One Artery with Drug-eluting Intraluminal Device, Percutaneous Approach (ICD-10-PCS; principal; 2020-04-19 10:00)
DX: I21.4 Non-ST elevation (NSTEMI) myocardial infarction (principal); N18.4 Chronic kidney disease, stage 4 (severe); I25.10 Atherosclerotic heart disease of native coronary artery without angina pectoris; E11.22 Type 2 diabetes mellitus with diabetic chronic kidney disease; I12.9 Hypertensive chronic kidney disease with stage 1 through stage 4 chronic kidney disease, or unspecified chronic kidney disease; D63.1 Anemia in chronic kidney disease; Z79.01 Long term (current) use of anticoagulants; Z79.84 Long term (current) use of oral hypoglycemic drugs; Z79.899 Other long term (current) drug therapy; Z88.0 Allergy status to penicillin; Z79.82 Long term (current) use of aspirin; Z95.828 Presence of other vascular implants and grafts
CPT/HCPCS: 36415; 70450; 71045; 72125; 80048; 80061; 80076; 82962; 83036; 83735; 84436; 84443; 84484; 85025; 85347; 85610; 86328; 92928; 92978; 93005; 93306; 93458; 99152; 99153; 99284; C1725; C1769; C1876; C9600; J1644; Q9967

== ENCOUNTER 2020-04-25 13:49 | Outpatient (RCR) | payer BC, SELFPAY | END 2020-07-10 13:53 | disposition home or self-care (01) | LOC: PT 13:49 | PROVIDERS: Visit Provider Internal Medicine | DX: Z95.5 Presence of coronary angioplasty implant and graft (principal) | CPT/HCPCS: 93798 ==

== ENCOUNTER → 2020-04-30 12:37 | Outpatient (CLI) | payer BC, MEDICARE, SELFPAY ==
--- NOTE | 2020-04-30 12:39 | CA_ITS ---
APPROVED REPORT Director Social: CT Laterality: Bilateral Indications: hx of cva/carotid artery stenosis., IA DIZZINESS Surgery/Intervention Endarterectomy: right Doppler Spectral Velocity Analysis ECA (R) 287.00/ cm/s ECA (L) 169.00/ cm/s dICA (R) 95.80/33.70 cm/s dICA (L) 59.00/20.50 cm/s Brenda (R) 148.10/32.90 cm/s Brenda (L) 66.70/27.80 cm/s pICA (R) 143.40/42.30 cm/s pICA (L) 62.50/23.10 cm/s dCCA (R) 105.40/27.40 cm/s dCCA (L) 110.50/22.30 cm/s pCCA (R) 89.00/21.70 cm/s pCCA (L) 108.00/20.60 cm/s Vert (R) 58.80/ cm/s Vert (L) 118.50/ cm/s ICA/CCA 1.40 ICA/CCA 0.60 Findings Duplex evaluation demonstrates stenosis of the right proximal internal carotid artery in the range of 50-69% with PSV =140 cm/sec, EDV <100 cm/sec, and IC/CC Ratio <4.0. Duplex evaluation demonstrates stenosis of the left proximal internal carotid artery in the range of 20-49% with PSV <140 cm/sec, EDV <100 cm/sec, and IC/CC Ratio <4.0. Duplex evaluation demonstrates antegrade flow of the bilateral Vertebral Arteries. Duplex evaluation demonstrates >60% stenosis of the External Carotid Arteries bilaterally. B-Mode Ultrasound demonstrates intraluminal plaque in the bilateral common Carotid Arteries. Conclusion Duplex evaluation demonstrates stenosis of the right proximal internal carotid artery in the range of 50-69% with PSV =140 cm/sec, EDV <100 cm/sec, and IC/CC Ratio <4.0. Duplex evaluation demonstrates stenosis of the left proximal internal carotid artery in the range of 20-49% with PSV <140 cm/sec, EDV <100 cm/sec, and IC/CC Ratio <4.0. Duplex evaluation demonstrates antegrade flow of the bilateral Vertebral Arteries. Duplex evaluation demonstrates >60% stenosis of the External Carotid Arteries bilaterally. B-Mode Ultrasound demonstrates intraluminal plaque in the bilateral common Carotid Arteries. Electronically signed by : Vincent Rebollar MD 04/30/2020 17:07:04
== END ==
PROVIDERS: PCP Family Medicine; Visit Provider Internal Medicine Cardiovascular Disease
DX: R09.89 Other specified symptoms and signs involving the circulatory and respiratory systems (principal); E78.5 Hyperlipidemia, unspecified; I10 Essential (primary) hypertension; I21.4 Non-ST elevation (NSTEMI) myocardial infarction; I25.10 Atherosclerotic heart disease of native coronary artery without angina pectoris; N18.9 Chronic kidney disease, unspecified; Z95.5 Presence of coronary angioplasty implant and graft
CPT/HCPCS: 93880

== ENCOUNTER → 2020-07-18 09:45 | Outpatient (CLI) | payer BC, SELFPAY ==
--- NOTE | 2020-07-18 09:51 | XR_ITS ---
PROCEDURE: XR FOOT WT BEARING RT 3V CLINICAL INDICATION: foot pain COMPARISON: No exams were available for comparison FINDINGS: Mild pes planus with mild osteoarthritic change at the talonavicular joint and tarsal metatarsal junction. Prominent calcaneal spurs present. No fracture or dislocation. No lytic or blastic change. Other findings:None. IMPRESSION: Osteoarthritis with pes planus Dictated by: Vincent Rebollar MD 07/18/2020 17:21 Vincent Rebollar MD in [place] 07/18/2020 17:21
--- NOTE | 2020-07-18 09:51 | XR_ITS ---
PROCEDURE: XR FOOT WT BEARING LT 3V CLINICAL INDICATION: foot pain COMPARISON: No exams were available for comparison FINDINGS: No obvious fracture or dislocation. Osteoarthritic changes are present with prominent sub chondral cystic changes at the tarsal metatarsal junction. Developing Charcot joint is a consideration. Osteoarthritic changes are also present at the talonavicular and navicular cuneiform joint. There is moderate pes planus at the navicular cuneiform region. Prominent calcaneal spurs noted. Other findings:None. IMPRESSION: Charcot joint in the midfoot with pes planus Dictated by: Vincent Rebollar MD 07/18/2020 17:19 Vincent Rebollar MD in [place] 07/18/2020 17:19
--- NOTE | 2020-07-18 09:51 | XR_ITS ---
PROCEDURE: XR ANKLE WT BEARING RT MIN 3V CLINICAL INDICATION: foot pain Pain COMPARISON: No exams were available for comparison FINDINGS: There are mild osteoarthritic changes at the ankle joint. There is a prominent calcaneal spur. No fracture or dislocation. No lytic or blastic change. IMPRESSION: No acute findings. Dictated by: Vincent Rebollar MD 07/18/2020 17:20 Vincent Rebollar MD in [place] 07/18/2020 17:20
== END ==
PROVIDERS: PCP Family Medicine; Visit Provider Nurse Practitioner
DX: E11.8 Type 2 diabetes mellitus with unspecified complications (principal); E08.622 Diabetes mellitus due to underlying condition with other skin ulcer; L97.301 Non-pressure chronic ulcer of unspecified ankle limited to breakdown of skin; Z79.84 Long term (current) use of oral hypoglycemic drugs
CPT/HCPCS: 73610; 73630

== ENCOUNTER → 2020-08-08 09:25 | Outpatient (CLI) | payer BC, SELFPAY ==
--- NOTE | 2020-08-08 09:26 | US_ITS ---
APPROVED REPORT Exam Type: Lower Extremity Segmental Pressures Glove Examiner: Abi Martínez RVT Indications Claudication: Bilaterally DECREASED PEDAL PULSES Risk Factors CAD Hyperlipidemia TIA/CVA History Diabetes Pressures/Indices Right Indices Left Indices Brachial 186.00 mmHg Brachial 171.00 mmHg Low Thigh 210.00 mmHg 1.13 Low Thigh 0.00 mmHg 0.00 Calf 129.00 mmHg 0.69 Calf 0.00 mmHg 0.00 Ankle(PT) 140.00 mmHg 0.75 Ankle(PT) 224.00 mmHg 1.20 Ankle(DP) 131.00 mmHg 0.70 Ankle(DP) 165.00 mmHg 0.89 Digit 90.00 mmHg 0.48 Digit 120.00 mmHg 0.65 Findings RT BEBO:0.75 LT BEBO:1.20 RT TBI:0.48 LT TBI:0.65 DECREASED WAVEFORMS BILATERAL ANKLES DECREASED PULSE ON THE RIGHT,LEFT WAS NORMAL Conclusion RT BEBO:0.75 LT BEBO:1.20 RT TBI:0.48 LT TBI:0.65 DECREASED WAVEFORMS BILATERAL ANKLES DECREASED PULSE ON THE RIGHT,LEFT WAS NORMAL MOderate right and severe left arterial disease Electronically signed by : Vincent Rebollar MD 08/12/2020 16:08:07
== END ==
PROVIDERS: PCP Family Medicine; Visit Provider Podiatrist
DX: R09.89 Other specified symptoms and signs involving the circulatory and respiratory systems (principal)
CPT/HCPCS: 93923

== ENCOUNTER → 2020-08-30 11:43 | Outpatient (CLI) | payer BC, SELFPAY | PROVIDERS: PCP Family Medicine; Visit Provider Internal Medicine Cardiovascular Disease | DX: R00.2 Palpitations (principal); R09.89 Other specified symptoms and signs involving the circulatory and respiratory systems; I65.23 Occlusion and stenosis of bilateral carotid arteries | CPT/HCPCS: 93270 ==

== ENCOUNTER → 2020-09-04 09:15 | Outpatient (CLI) | payer BC, SELFPAY ==
--- NOTE | 2020-09-04 09:18 | CA_ITS ---
APPROVED REPORT Director Life Sciences: MERVAT Laterality: Bilateral Study Quality: Excellent Indications: bilateral carotid artery stenosis, Hx-Lt CEA 1989, DM, HLD Risk Factors Hyperlipidemia Previous smoker, Surgery/Intervention Endarterectomy: left Doppler Spectral Velocity Analysis ECA (R) 220.40/16.70 cm/s ECA (L) 273.10/16.50 cm/s dICA (R) 101.10/30.80 cm/s dICA (L) 62.90/23.10 cm/s Brenda (R) 107.10/35.10 cm/s Brenda (L) 77.10/25.70 cm/s pICA (R) 116.60/29.90 cm/s pICA (L) 66.80/23.10 cm/s dCCA (R) 113.00/26.20 cm/s dCCA (L) 140.50/16.30 cm/s pCCA (R) 83.10/18.00 cm/s pCCA (L) 95.00/11.20 cm/s Vert (R) 63.40/13.70 cm/s Vert (L) 87.40/13.70 cm/s ICA/CCA 1.41 ICA/CCA 1.47 Findings Duplex evaluation demonstrates mild stenosis of the proximal Rightl Internal Carotid Arteries in the range of 20-49% =140 cm/sec. Duplex evaluation demonstrates stenosis of the left proximal internal carotid artery in the range of 20-49% with PSV <140 cm/sec, EDV <100 cm/sec, and IC/CC Ratio <4.0. Duplex evaluation demonstrates antegrade flow of the bilateral Vertebral Arteries. B-Mode Ultrasound demonstrates mild to moderate heterogenous intraluminal plaque in the distal left common Carotid Artery with PSV of 140cm/sec. Incidental finding of right goiter versus right throid mass. Conclusion Duplex evaluation demonstrates mild stenosis of the proximal Rightl Internal Carotid Arteries in the range of 20-49% =140 cm/sec. Duplex evaluation demonstrates stenosis of the left proximal internal carotid artery in the range of 20-49% with PSV <140 cm/sec, EDV <100 cm/sec, and IC/CC Ratio <4.0. Duplex evaluation demonstrates antegrade flow of the bilateral Vertebral Arteries. B-Mode Ultrasound demonstrates mild to moderate heterogenous intraluminal plaque in the distal left common Carotid Artery with PSV of 140cm/sec. Incidental finding of right goiter versus right throid mass. Electronically signed by : Vincent Rebollar MD 09/05/2020 18:32:07
== END ==
PROVIDERS: PCP Family Medicine; Visit Provider Internal Medicine Cardiovascular Disease
DX: I65.23 Occlusion and stenosis of bilateral carotid arteries (principal); R09.89 Other specified symptoms and signs involving the circulatory and respiratory systems; R00.2 Palpitations
CPT/HCPCS: 93880

== ENCOUNTER → 2020-12-27 10:15 | Outpatient (CLI) | payer BC, SELFPAY ==
[2020-12-27 10:48] LABS: Basophils % 0.8 % (0.1-2.0); Eosinophils # 0.1 K/mm3 (0.0-0.4); Eosinophils % 3.1 % (0.1-12.0); Hematocrit 28.3 % (42.0-52.0); Hemoglobin 9.8 g/dL (14.1-18.0); Lymphocytes # 0.8 K/mm3 (0.7-4.5); Lymphocytes % 17.9 % (10-50); Mean Corpuscular HGB Conc 34.5 g/dL (31.8-35.4); Mean Corpuscular Hemoglobin 31.4 pg (27.0-31.2); Mean Corpuscular Volume 90.9 fl (80-94); Mean Platelet Volume 8.8 fl (7.4-10.4); Monocytes # 0.3 K/mm3 (0.1-1.0); Neutrophils % 70.3 % (37.0-80.0); Platelet Count 218 K/mm3 (142-424); Red Blood Count 3.12 M/mm3 (4.60-6.20); Red Cell Distribution Width 12.7 % (11.5-17.5); White Blood Count 4.3 K/mm3 (4.8-10.8)
[2020-12-27 11:32] LABS: Anion Gap 13.8 mEq/L (5-15); Blood Urea Nitrogen 41 mg/dl (9-20); Calcium 8.2 mg/dl (8.4-10.2); Carbon Dioxide 22 mmol/L (22.0-30.0); Chloride 106 mmol/L (98-107); Estimated Glomerular Filt Rate 22 ml/min (>60); GFR (African American) 27 ML/MIN (>60); Glucose 123 mg/dl (74-100); Potassium 4.8 mmoL/L (3.5-5.1); Sodium 137 mmol/L (136-145)
== END ==
PROVIDERS: Visit Provider Internal Medicine Cardiovascular Disease
DX: E78.2 Mixed hyperlipidemia (principal); I10 Essential (primary) hypertension; I25.10 Atherosclerotic heart disease of native coronary artery without angina pectoris; I51.89 Other ill-defined heart diseases; N18.9 Chronic kidney disease, unspecified; R09.89 Other specified symptoms and signs involving the circulatory and respiratory systems; R60.0 Localized edema; Z95.5 Presence of coronary angioplasty implant and graft
CPT/HCPCS: 36415; 80048; 85025

== ENCOUNTER → 2021-01-15 07:39 | Outpatient (CLI) | payer BC, SELFPAY ==
--- NOTE | 2021-01-15 07:44 | US_ITS ---
PROCEDURE: US THYROID CLINICAL INDICATION: goiter COMPARISON: No exams were available for comparison FINDINGS: Right lobe: 5.4 x 3.1 x 3.7 cm. There is a 4 x 2.4 cm heterogeneous isoechoic nodule encompassing most of the right lobe. No obvious internal calcifications. Left lobe: 4.6 x 2.4 x 1.8 cm with diffuse heterogeneous echogenicity. 1.6 cm heterogeneous isoechoic nodule in the upper pole. 11 x 9 mm slightly isoechoic nodule in the upper pole. In the lower pole there is a 12 x 8 mm mixed nodule Isthmus: The isthmus is thickened at 5 mm Additional findings: IMPRESSION: Dominant nodule in the right TR level 3 greater than 2.5 cm. Suggest ultrasound-guided FNA. Other nodules are TR level 3 less than 2.5 cm and can be observed on an annual basis. Dictated by: Vincent Rebollar MD 01/15/2021 14:21 Vincent Rebollar MD in [place] 01/15/2021 14:21
== END ==
PROVIDERS: PCP Family Medicine; Visit Provider Otolaryngology
DX: E04.9 Nontoxic goiter, unspecified (principal)
CPT/HCPCS: 76536

== ENCOUNTER → 2021-01-20 15:44 | Outpatient (CLI) | payer BC, SELFPAY ==
[2021-01-20 17:53] LABS: Free T4 (Free Thyroxine) 0.98 ng/dl (0.78-2.19)
[2021-01-20 18:03] LABS: Prostate Specific Ag Screen 1.6 ng/ml (0.0-4.0)
[2021-01-20 18:08] LABS: Thyroid Stimulating Hormone 0.74 uIU/mL (0.465-4.68)
[2021-01-22 06:30] LABS: Thyroid Peroxidase Antibodies <8 IU/mL (0-34)
[2021-01-23 08:32] LABS: Thyroid Stimulating Immunoglob <0.10 IU/L (0.00-0.55)
== END ==
PROVIDERS: Visit Provider Otolaryngology
DX: E04.9 Nontoxic goiter, unspecified (principal); R97.20 Elevated prostate specific antigen [PSA]
CPT/HCPCS: 36415; 84439; 84443; 84445; 86376; G0103

== ENCOUNTER → 2021-02-03 09:38 | Outpatient (CLI) | payer BC, SELFPAY ==
--- NOTE | 2021-02-03 09:38 | US_ITS ---
PROCEDURE: US FNA THYROID CLINICAL INDICATION: Dominant right thyroid nodule COMPARISON: US US THYROID from 01/15/2021 TECHNIQUE: Following obtaining informed consent, using aseptic technique and local anesthesia with buffered lidocaine, fine-needle aspiration was performed of the nodule of interest using sonographic guidance. 3 passes were made into the nodule with a 25-gauge needle. Specimen was given to cytology in 2 different vials 1 of which was more bloody appearing than the other both coming from the same nodule. The patient tolerated the procedure well without evidence of immediate complications and left the ultrasound suite in stable condition. FINDINGS: CYTOLOGY: Negative for malignancy. Consistent with benign follicular nodule IMPRESSION: Uneventful ultrasound-guided FNA of the dominant right thyroid nodule showing benign findings. Dictated by: Vincent Rebollar MD 02/11/2021 18:37 Vincent Rebollar MD in [place] 02/11/2021 18:37
== END ==
PROVIDERS: PCP Family Medicine; Visit Provider Otolaryngology
DX: E04.9 Nontoxic goiter, unspecified (principal)
CPT/HCPCS: 10005

== ENCOUNTER → 2021-07-21 12:46 | Outpatient (CLI) | payer BC, SELFPAY ==
--- NOTE | 2021-07-21 12:50 | XR_ITS ---
FINAL REPORT CLINICAL HISTORY: right heel pain, BILATERAL FOOT PAIN FINDINGS: RIGHT FOOT 3 views of the right foot were obtained. There is no acute fracture or dislocation. There are mild degenerative changes. There is a plantar calcaneal spur. Mild vascular calcification is present. IMPRESSION: Mild degenerative change. Plantar calcaneal spur. Reviewed, Interpreted and Dictated by Yury Veronica III, MD Transcribed by Lashawn Alberto Authenticated by Yury Veronica III, MD on 07/21/2021 03:45:55 PM [facility]
--- NOTE | 2021-07-21 12:50 | XR_ITS ---
FINAL REPORT CLINICAL HISTORY: DM Charcot, BILATERAL FOOT PAIN FINDINGS: LEFT FOOT Three views of the left foot were obtained. There is moderate to severe degenerative change of the midfoot. There is partial collapse of the midfoot with pes planus deformity. A plantar calcaneal spur is present. Mild vascular calcification is seen. IMPRESSION: Moderate to severe degenerative change with partial collapse of the midfoot. Reviewed, Interpreted and Dictated by Yury Veronica III, MD Transcribed by Lashawn Alberto Authenticated by Yury Veronica III, MD on 07/21/2021 03:45:[address] [facility]
== END ==
PROVIDERS: PCP Family Medicine; Visit Provider Podiatrist
DX: E11.610 Type 2 diabetes mellitus with diabetic neuropathic arthropathy (principal); M79.671 Pain in right foot; M79.672 Pain in left foot; Z79.84 Long term (current) use of oral hypoglycemic drugs
CPT/HCPCS: 73630

== ENCOUNTER 2021-08-17 20:17 | Emergency (ER) | payer BC, SELFPAY ==
[2021-08-17 20:31] VITALS: BP 133/67; PULSE 99; RESP 16; O2SAT 100; BMI 26.6
--- NOTE | 2021-08-17 20:38 | CT_ITS ---
PROCEDURE INFORMATION: Exam: CT Head Without Contrast Exam date and time: 08/17/2021 9:26 PM Age: 80 years old Clinical indication: Injury or trauma; Fall; Blunt trauma (contusions or hematomas); Additional info: Fall with head injury, no loc TECHNIQUE: Imaging protocol: Computed tomography of the head without contrast. Radiation optimization: All CT scans at this facility use at least one of these dose optimization techniques: automated exposure control; mA and/or kV adjustment per patient size (includes targeted exams where dose is matched to clinical indication); or iterative reconstruction. COMPARISON: CT HEAD/BRAIN WO CON 04/18/2020 6:33 PM FINDINGS: Brain: Atrophy and chronic small vessel ischemic changes. No hemorrhage. No mass effect or midline shift. Chronic infarct left occipital lobe. Cerebral ventricles: No ventriculomegaly. Paranasal sinuses: Mucosal thickening left maxillary sinus. No fluid levels. Mastoid air cells: Visualized mastoid air cells are well aerated. Soft tissues: Unremarkable. Bones/joints: Unremarkable. No acute fracture. IMPRESSION: Chronic changes in the brain but no acute intracranial abnormality.
--- NOTE | 2021-08-17 20:38 | CT_ITS ---
PROCEDURE INFORMATION: Exam: CT Cervical Spine Without Contrast Exam date and time: 08/17/2021 9:29 PM Age: 80 years old Clinical indication: Injury or trauma; Fall; Additional info: Fall with head injury, no loc TECHNIQUE: Imaging protocol: Computed tomography images of the cervical spine without contrast. Radiation optimization: All CT scans at this facility use at least one of these dose optimization techniques: automated exposure control; mA and/or kV adjustment per patient size (includes targeted exams where dose is matched to clinical indication); or iterative reconstruction. COMPARISON: CT CERVICAL SPINE WO CON 04/18/2020 6:33 PM FINDINGS: Bones/joints: No acute fracture. Normal alignment. Chronic fracture of the tip of the spinous process of T1. Discs/Spinal canal/Neural foramina: Severe multilevel degenerative disc disease with multilevel disc osteophyte complexes and disc height narrowing resulting in varying degrees of neural foraminal and central canal narrowing. Lungs: Lung apices reveal airspace disease concerning for pneumonia. Soft tissues: Unremarkable. IMPRESSION: No acute findings.
--- NOTE | 2021-08-17 20:38 | XR_ITS ---
PROCEDURE INFORMATION: Exam: XR Chest Exam date and time: 08/17/2021 9:33 PM Age: 80 years old Clinical indication: Injury or trauma; Fall; Blunt trauma (contusions or hematomas) TECHNIQUE: Imaging protocol: XR of the chest. Views: 1 view. COMPARISON: CR XR CHEST PORTABLE 04/18/2020 6:38 PM FINDINGS: Lungs: Bilateral upper lobe prominent airspace disease concerning for pneumonia. Pleural spaces: Unremarkable. No pleural effusion. No pneumothorax. Heart/Mediastinum: Unremarkable. No cardiomegaly. Bones/joints: Unremarkable. IMPRESSION: Bilateral upper lobe prominent airspace disease concerning for pneumonia.
--- NOTE | 2021-08-17 20:38 | XR_ITS ---
PROCEDURE INFORMATION: Exam: XR Pelvis Exam date and time: 08/17/2021 9:35 PM Age: 80 years old Clinical indication: Injury or trauma; Fall; Blunt trauma (contusions or hematomas); Bilateral; Pelvic region TECHNIQUE: Imaging protocol: XR pelvis. Views: 1 or 2 view. COMPARISON: No relevant prior studies available. FINDINGS: Bones/joints: Unremarkable. No acute fracture. Soft tissues: Unremarkable. Arthrosclerotic changes. IMPRESSION: No acute findings.
[2021-08-17 20:46] LABS: Basophils % 0.5 % (0.1-2.0); Eosinophils # 0.1 K/mm3 (0.0-0.4); Eosinophils % 1.2 % (0.1-12.0); Hematocrit 34.9 % (42.0-52.0); Hemoglobin 11.4 g/dL (14.1-18.0); Lymphocytes # 0.4 K/mm3 (0.7-4.5); Lymphocytes % 4.8 % (10-50); Mean Corpuscular HGB Conc 32.8 g/dL (31.8-35.4); Mean Corpuscular Hemoglobin 31.8 pg (27.0-31.2); Mean Corpuscular Volume 96.9 fl (80-94); Monocytes # 0.3 K/mm3 (0.1-1.0); Monocytes % 3.5 % (1.7-9.3); Neutrophils # 6.9 K/mm3 (1.8-7.8); Platelet Count 198 K/mm3 (142-424); White Blood Count 7.6 K/mm3 (4.8-10.8)
[2021-08-17 20:50] LABS: MANUAL DIFFERENTIAL MANUAL DIFFERENTIAL (MANUAL DIFF)
--- NOTE | 2021-08-17 20:55 | XR_ITS ---
PROCEDURE INFORMATION: Exam: XR Right Tibia and Fibula Exam date and time: 08/17/2021 9:36 PM Age: 80 years old Clinical indication: Injury or trauma; Fall; Blunt trauma; Lower leg; Right; Additional info: Right calf pain after fall TECHNIQUE: Imaging protocol: XR Right tibia and fibula. Views: 2 views. COMPARISON: CR XR FOOT WT BEARING RT 3V 07/21/2021 1:29 PM FINDINGS: Bones/joints: There is a minimally displaced obliquely oriented proximal fibular shaft fracture. No additional fracture or dislocation. Moderate degenerative changes in the knee joint with joint space narrowing and tibial spine peaking. Soft tissues: Arthrosclerotic calcifications. IMPRESSION: There is a minimally displaced obliquely oriented proximal fibular shaft fracture.
[2021-08-17 20:58] LABS: Chloride 108 mmol/L (98-107)
[2021-08-17 20:59] LABS: Potassium 4.3 mmoL/L (3.5-5.1); Sodium 139 mmol/L (136-145)
[2021-08-17 21:01] LABS: Alanine Aminotransferase 27 U/L (12-78); Alkaline Phosphatase 77 U/L (38-126); Aspartate Amino Transferase 34 U/L (17-59); Bilirubin,Total 0.5 mg/dl (0.2-1.3); Blood Urea Nitrogen 47 mg/dl (9-20); Creatinine Clearance Estimated 24 mL/min (50-200); Estimated Glomerular Filt Rate 20 ml/min (>60); GFR (African American) 25 ML/MIN (>60)
[2021-08-17 21:02] LABS: Albumin Level 3.7 g/dl (3.5-5.0); Albumin/Globulin Ratio 1.3 (1.1-1.8); Anion Gap 11.3 mEq/L (5-15); Calcium 7.4 mg/dl (8.4-10.2); Carbon Dioxide 24 mmol/L (22.0-30.0); Globulin 2.9 g/dL (1.3-3.2); Glucose 228 mg/dl (74-100); Total Protein,Serum 6.6 g/dl (6.3-8.2)
[2021-08-17 21:06] LABS: Lymphocytes % 9 % (10-50); Monocytes % 2 % (2-9); Neutrophils % 89 % (42-76); Platelet Estimate Normal; RBC Morphology Normal; Total Cells Counted 100
--- NOTE | 2021-08-17 21:24 | CT_ITS ---
PROCEDURE INFORMATION: Exam: CT Chest Without Contrast; Diagnostic Exam date and time: 08/17/2021 9:34 PM Age: 80 years old Clinical indication: Injury or trauma; Fall; Additional info: Trauma fell off a porch TECHNIQUE: Imaging protocol: Diagnostic computed tomography of the chest without contrast. Radiation optimization: All CT scans at this facility use at least one of these dose optimization techniques: automated exposure control; mA and/or kV adjustment per patient size (includes targeted exams where dose is matched to clinical indication); or iterative reconstruction. COMPARISON: CR XR CHEST PORTABLE 08/17/2021 9:33 PM FINDINGS: Lungs: Lungs reveal extensive bilateral airspace disease most pronounced in the right upper lobe, left upper lobe and minimally in the left lung base concerning for pneumonia. Less likely areas of pulmonary contusion. Pleural spaces: Unremarkable. No pneumothorax. No pleural effusion. Heart: Unremarkable. No cardiomegaly. No pericardial effusion. Lymph nodes: Unremarkable. No enlarged lymph nodes. Aorta: Unremarkable. No aortic aneurysm. Bones/joints: Multilevel anterior bridging osteophyte formation. No acute fracture. Soft tissues: Unremarkable. IMPRESSION: 1. No evidence for posttraumatic finding in the chest. 2. Findings concerning for bilateral pneumonia
[2021-08-17 23:03] VITALS: BP 157/73; PULSE 83; O2SAT 95
[2021-08-17 23:05] VITALS: BP 142/78; PULSE 82; RESP 20; TEMP 36.8; O2SAT 95
--- NOTE | 2021-08-17 23:23 | HMH.EDGENADL ---
ED Disposition Clinical Impression: Pneumonia, Closed fibular fracture Disposition: Home, Self-Care Condition on Discharge: Fair Additional Instructions: Follow up with your PCP within 3 days. Take prescribed medications, as prescribed. Return to the ED for any new or worsening symptoms, or for further concerns. Prescriptions: levoFLOXacin [Levofloxacin 750MG Tablet*] 750 mg PO DAILY #5 tab Transmission Status: Received by SELMA CELIS [id number] Referrals: Lamont Rivero MD [Primary Care Provider] - - Critical Care Critical Care Time: No Attestation: On 08/17/21, the high probability of a clinically significant, sudden or life threatening deterioration of the following system(s) required my full and direct attention, intervention and personal management. The time I documented below is in addition to time spent performing reported procedures but includes the following listed in this critical care notation. Medical Decision Making - Ferm[place] Inquiry Pt receiving controlled substance: No Vital Signs: 08/17/21 20:31 08/17/21 23:03 08/17/21 23:05 Temperature 98.2 F Temperature Source Oral Pulse Rate 83 82 Pulse Rate [Right Brachial] 99 H Respiratory Rate 16 20 Blood Pressure 157/73 H 142/78 H Blood Pressure [Right Arm] 133/67 Blood Pressure Mean [Right Arm] 89 Blood Pressure Source Automatic Cuff Blood Pressure Source [Right Arm] Automatic Cuff Blood Pressure Position Sitting Blood Pressure Position [Right Arm] Sitting 02 Sat by Pulse Oximetry 100 95 Oxygen Delivery Method Room Air Room Air Room Air - Lab Data Lab Results 08/17/21 20:40: WBC 7.6, RBC 3.60 L, Hgb 11.4 L, Hct 34.9 L, MCV 96.9 H, MCH 31.8 H, MCHC 32.8, RDW 14.0, Plt Count 198, MPV 9.0, Neut % (Auto) 90.0 H, Lymph % (Auto) 4.8 L, [place] % (Auto) 3.5, Eos % (Auto) 1.2, Baso % (Auto) 0.5, Neut # (Auto) 6.9, Lymph # (Auto) 0.4 L, [place] # (Auto) 0.3, Eos # (Auto) 0.1, Baso # (Auto) 0.0, Total Counted 100, Neutrophils % (Manual) 89 H, Lymphocytes % (Manual) 9 L, Monocytes % (Manual) 2, Platelet Estimate Normal, RBC Morphology Normal 08/17/21 20:40: Sodium 139, Potassium 4.3, Chloride 108 H, Carbon Dioxide 24, Anion Gap 11.3, BUN 47 H, Creatinine 3.00 H, Estimated Creat Clear 24, Estimated GFR 20 L, Est GFR ( Amer) 25 L, Glucose 228 H, Calcium 7.4 L, Total Bilirubin 0.5, AST 34, ALT 27, Alkaline Phosphatase 77, Total Protein 6.6, Albumin 3.7, Globulin 2.9, Albumin/Globulin Ratio 1.3 Result diagrams: 08/17/21 20:40 08/17/21 20:40 Medical Decision Narrative: DDx includes but not limited to ICH, skull fracture, pulmonary contusion, pneumonia, fibular fracture. HDS, on RA, NAD, GCS 15. Patient ambulating without difficulty and with nonfocal neuro exam. CTH without ICH or skull fracture. CT chest obtained given reported hemoptysis, no post traumatic findings per radiology interpretation but with bilateral opacities concerning for pneumonia. Possible pulm contusions but without rib fractures. Patient has no chest pain, cough resolved in ED, is on room air, no shortness of breath. XR of RLE shows fibular shaft fracture mildly displaced. Patient able to bear weight without difficulty, ambulating without trouble. Shared decision making conversation with patient regarding possible pulmonary contusions after trauma vs pneumonia and needing observation in hospital for respiratory decompensation, preferably trauma center, but patient also well appearing, on room air, and denies any respiratory symptoms now and on serial reassessments here in the ED and denies chest pain, and conversation concluded with patient agreeing to plan to follow up closely within 1-2 days with PCP (as patient states he does not want to stay in hospital and can easily return to ED if needed) and given strict ED return precautions. Given rx for levofloxacin 5 days for possible pneumonia. General Adult HPI - General Chief complaint: Fall Stated complaint: fall Time Seen by
== END 2021-08-17 23:32 | disposition home or self-care (01) ==
PROVIDERS: Emergency Provider Student in an Organized Health Care Education/Training Program; PCP Family Medicine
DX: S82.401A Unspecified fracture of shaft of right fibula, initial encounter for closed fracture (principal); S01.511A Laceration without foreign body of lip, initial encounter; J18.9 Pneumonia, unspecified organism; M79.604 Pain in right leg; I25.10 Atherosclerotic heart disease of native coronary artery without angina pectoris; N18.9 Chronic kidney disease, unspecified; E11.9 Type 2 diabetes mellitus without complications; Z79.02 Long term (current) use of antithrombotics/antiplatelets; Z79.82 Long term (current) use of aspirin; Z79.899 Other long term (current) drug therapy; Z88.0 Allergy status to penicillin; Z88.8 Allergy status to other drugs, medicaments and biological substances; Z95.5 Presence of coronary angioplasty implant and graft; Z82.49 Family history of ischemic heart disease and other diseases of the circulatory system; Z83.3 Family history of diabetes mellitus; Z80.9 Family history of malignant neoplasm, unspecified; Z84.1 Family history of disorders of kidney and ureter; W18.00XA Striking against unspecified object with subsequent fall, initial encounter
CPT/HCPCS: 70450; 71045; 71250; 72125; 72170; 73590; 80053; 85007; 85025; 99285

== ENCOUNTER 2022-03-21 11:08 | Emergency (ER) | payer BC, SELFPAY ==
[2022-03-21] VITALS (10 sets, daily range): BP systolic 126–174; BP diastolic 61–97; PULSE 62–69; RESP 16–19; TEMP 36.6–36.7; O2SAT 95–99; BMI 29.8; BMI 25.7
[2022-03-21 13:14] LABS: POC Glucose,Bedside 88 (70-110)
--- NOTE | 2022-03-21 13:31 | EXP.UTC ---
Discharge Plan Disposition Patient Disposition: Home, Self-Care Condition: Fair Prescriptions Prescriptions: No Action ferrous sulfate [Feosol] 325 mg (65 mg iron) tablet 325 mg PO DAILY glipizide 10 mg tablet 10 mg PO DAILY clopidogrel 75 MG tablet 75 mg PO DAILY tamsulosin 0.4 MG capsule 0.4 mg PO DAILY cholecalciferol (vitamin D3) 25 MCG tablet 4,000 unit PO DAILY sitagliptin phosphate 50 mg tablet 50 mg PO BID atorvastatin 40 MG tablet 1 tab PO DAILY Rx Instructions: TAKE ONE TABLET BY MOUTH DAILY metoprolol succinate 50 MG tablet extended release 24 hr 50 mg PO DAILY Rx Instructions: TAKE ONE TABLET BY MOUTH DAILY aspirin 81 MG tablet,delayed release (DR/EC) 81 mg PO DAILY furosemide 20 MG tablet 1 tab PO DAILY Rx Instructions: TAKE ONE TABLET BY MOUTH DAILY liraglutide 0.6 MG/0.1 ML pen injector 1.8 units SQ DIRECTED Referrals Follow up/Referrals: Lamont Rivero MD [Primary Care Provider] - See instructions Clinical Impressions Clinical Impression: Acute viral syndrome Instructions Patient Instructions: DI for Viral Syndrome Discharge ED Provider: Herber Henderson [facility] General Chief complaint: Upper Respiratory Infection Stated complaint: sob, no appeite, cough, wheeze Mode of Arrival: Ambulatory Source of Information: Patient Limitations: No Limitations Time Seen by Provider: 03/21/22 13:31 Description of Symptoms (Recalled from Triage Doc. by RN): PATIENT C/O SINUS CONGESTION AND HIS HEAD FEELS CLOUDY HEENT Symptoms (Recalled from RN notes): Yes Resp Symptoms (Recalled from RN notes): No Skin Symptoms (Recalled from RN notes): No MS Symptoms (Recalled from RN notes): No Functional Status (Recalled from RN notes): WNL History of Present Illness Provider Complaint: Patient states that he has been feeling congested in his sinuses and having pressure States that he has not had an appetite and not eating well, States that he feels off and cloudy like feeling in his head and has been stumbling into things at times and weak States that his head is all stopped up States that he was up most of the night coughing and feeling achy all over States that he thinks he has a sinus infection but over all just doesnt feel well States that he has labs with him that his PCP did a few weeks ago Related Data Home Medications Medication Instructions Recorded Confirmed clopidogrel 75 mg tablet 75 mg PO DAILY Blood thinner 04/18/20 02/18/22 tamsulosin 0.4 mg capsule 0.4 mg PO DAILY Prostate 04/18/20 02/18/22 cholecalciferol (vitamin D3) 25 4,000 unit PO DAILY Supplement 04/19/20 02/18/22 mcg (1,000 unit) tablet ferrous sulfate 325 mg (65 mg 325 mg PO DAILY Supplement 07/18/20 02/18/22 iron) tablet (Feosol) sitagliptin phosphate 50 mg tablet 50 mg PO BID Diabetes 08/30/20 02/18/22 glipizide 10 mg tablet 10 mg PO DAILY Diabetes 10/28/20 02/18/22 aspirin 81 mg tablet,delayed 81 mg PO DAILY antiplatelet 08/17/21 02/18/22 release atorvastatin 40 mg tablet 1 tab PO DAILY Cholesterol 08/17/21 02/18/22 furosemide 20 mg tablet 1 tab PO DAILY Fluid 08/17/21 02/18/22 liraglutide 0.6 mg/0.1 mL (18 mg/3 1.8 units SQ DIRECTED Diabetes 08/17/21 02/18/22 mL) subcutaneous pen injector metoprolol succinate 50 mg 50 mg PO DAILY Heartburn 08/17/21 02/18/22 tablet,extended release 24 hr Allergies Allergy/AdvReac Type Severity Reaction Status Date / Time Penicillins Allergy Intermediate Verified 02/18/22 11:42 doxycycline Allergy Unknown Verified 02/18/22 11:42 Worker's Comp Is this a Worker's Comp case?: No [facility] Medical History (Updated 03/21/22 @ 17:54 by Herber Henderson MD) Diabetes mellitus, type 2 Palpitations Social History (Updated 03/21/22 @ 12:57 by Bernie Scott RN) Smoking Status: Never smoker alcohol intake: never substance use type: denies use 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
--- NOTE | 2022-03-21 14:01 | PC.NURSE ---
PATIENT SENT TO ER PER Danielle HANNAH APRN FOR FURTHER EVALUATION. REPORT GIVEN TO Charan ZAPATA RN BY Danielle HANNAH APRN
--- NOTE | 2022-03-21 14:26 | PC.NURSE ---
CHULA Pratt at
--- NOTE | 2022-03-21 14:28 | XR_ITS ---
PROCEDURE INFORMATION: Exam: XR Chest Exam date and time: 03/21/2022 2:43 PM Age: 81 years old Clinical indication: Cough and shortness of breath; Additional info: Concern for pneumonia TECHNIQUE: Imaging protocol: Radiologic exam of the chest. Views: 1 view. COMPARISON: CT CHEST WO CON 08/17/2021 9:34 PM FINDINGS: Lungs: No evidence of pneumonia or interstitial edema. Pleural spaces: Unremarkable. No pleural effusion. No pneumothorax. Heart/Mediastinum: Unremarkable. No cardiomegaly. Bones/joints: Unremarkable. IMPRESSION: No evidence of pneumonia or interstitial edema.
--- NOTE | 2022-03-21 16:05 | PC.NURSE ---
covid swab sent to lab at this time, pt up to restroom
[2022-03-21 16:25] LABS: Basophils % 0.5 % (0.1-2.0); Eosinophils # 0.1 K/mm3 (0.0-0.4); Eosinophils % 2.3 % (0.1-12.0); Hematocrit 29.6 % (42.0-52.0); Hemoglobin 9.6 g/dL (14.1-18.0); Lymphocytes # 0.8 K/mm3 (0.7-4.5); Lymphocytes % 12.6 % (10-50); Mean Corpuscular HGB Conc 32.6 g/dL (31.8-35.4); Mean Corpuscular Hemoglobin 31.9 pg (27.0-31.2); Mean Platelet Volume 8.3 fl (7.4-10.4); Monocytes # 0.4 K/mm3 (0.1-1.0); Monocytes % 5.7 % (1.7-9.3); Neutrophils # 4.9 K/mm3 (1.8-7.8); Neutrophils % 78.8 % (37.0-80.0); Platelet Count 179 K/mm3 (142-424); Red Blood Count 3.02 M/mm3 (4.60-6.20); Red Cell Distribution Width 13.9 % (11.5-17.5); White Blood Count 6.2 K/mm3 (4.8-10.8)
[2022-03-21 16:26] LABS: Chloride 107 mmol/L (98-107)
[2022-03-21 16:27] LABS: Sodium 139 mmol/L (136-145)
[2022-03-21 16:29] LABS: Alanine Aminotransferase 16 U/L (12-78); Alkaline Phosphatase 101 U/L (38-126); Aspartate Amino Transferase 24 U/L (17-59); Bilirubin,Total 0.2 mg/dl (0.2-1.3); Blood Urea Nitrogen 40 mg/dl (9-20); Creatinine Clearance Estimated 23 mL/min (50-200); Estimated Glomerular Filt Rate 20 ml/min (>60); GFR (African American) 24 ML/MIN (>60)
[2022-03-21 16:29] LABS: Coronavirus 19, PCR Not Detected (NotDetected); Influenza A, PCR Not Detected (NotDetected); Influenza B, PCR Not Detected (NotDetected)
[2022-03-21 16:30] LABS: Albumin Level 3.6 g/dl (3.5-5.0); Albumin/Globulin Ratio 1.2 (1.1-1.8); Calcium 8.7 mg/dl (8.4-10.2); Glucose 80 mg/dl (74-100); Magnesium 1.8 mg/dl (1.6-2.3); Total Protein,Serum 6.6 g/dl (6.3-8.2)
[2022-03-21 16:35] LABS: Microscopic, Urine URINE MICROSCOPIC (MICROSCOPIC)
[2022-03-21 16:35] LABS: C-Reactive Protein 58.1 mg/L (0-4)
[2022-03-21 16:50] LABS: Appearance,Urine CLEAR (Clear); Bilirubin,Urine Negative (Negative); Blood, Urine 1+ (Negative); Color,Urine YELLOW (Yellow); Glucose,Urine (UA) TRACE (Negative); Ketones,Urine Negative (Negative); Leukocyte Esterase,Urine Negative (Negative); Nitrate,Urine Negative (Negative); Protein,Urine 2+ (Negative); Specific Gravity, Urine 1.025 (1.005-1.030); Urobilinogen,Urine 0.2 EU/dl (0.2)
[2022-03-21 16:52] LABS: Carbon Dioxide 22 mmol/L (22.0-30.0)
[2022-03-21 17:09] LABS: Bacteria,Urine 1+ /lpf
--- NOTE | 2022-03-21 17:53 | HMH.EDGENADL ---
Discharge Plan Disposition Patient Disposition: Home, Self-Care Condition: Fair Prescriptions Prescriptions: No Action ferrous sulfate [Feosol] 325 mg (65 mg iron) tablet 325 mg PO DAILY glipizide 10 mg tablet 10 mg PO DAILY clopidogrel 75 MG tablet 75 mg PO DAILY tamsulosin 0.4 MG capsule 0.4 mg PO DAILY cholecalciferol (vitamin D3) 25 MCG tablet 4,000 unit PO DAILY sitagliptin phosphate 50 mg tablet 50 mg PO BID atorvastatin 40 MG tablet 1 tab PO DAILY Rx Instructions: TAKE ONE TABLET BY MOUTH DAILY metoprolol succinate 50 MG tablet extended release 24 hr 50 mg PO DAILY Rx Instructions: TAKE ONE TABLET BY MOUTH DAILY aspirin 81 MG tablet,delayed release (DR/EC) 81 mg PO DAILY furosemide 20 MG tablet 1 tab PO DAILY Rx Instructions: TAKE ONE TABLET BY MOUTH DAILY liraglutide 0.6 MG/0.1 ML pen injector 1.8 units SQ DIRECTED Referrals Follow up/Referrals: Lamont Rivero MD [Primary Care Provider] - See instructions Clinical Impressions Clinical Impression: Acute viral syndrome Instructions Patient Instructions: DI for Viral Syndrome Discharge ED Provider: Herber Henderson General Adult HPI General Chief complaint: Upper Respiratory Infection Stated complaint: sob, no appeite, cough, wheeze Time Seen by Provider: 03/21/22 13:31 Mode of Arrival: Ambulatory Source of Information: Patient Limitations: No Limitations Description of Symptoms (Recalled from ER Triage Doc. by RN): Pt reports not feeling well for approx 2 weeks. Pt reports cough that is productive at times, head congestion. Denies fever, pain and SOA. Pt reports he sleeping more that his normal. History of Present Illness HPI narrative: Patient is an 81-year-old male with a past medical history of stage IV chronic kidney disease, hypertension, CAD who presents with concern for productive cough, head congestion, somnolence. He was initially seen at the urgent care but was subsequently transferred here for a more definitive evaluation. He states that he had a cough and head congestion during this time but he came in today because he was more tired than normal. He says that he feels like he is falling asleep when he is any when trying to fall asleep. He denies any chest or abdominal pain. Denies any numbness or tingling to his extremities. Continues to urinate as normal. Denies any dysuria. Related Data Home Medications Medication Instructions Recorded Confirmed clopidogrel 75 mg tablet 75 mg PO DAILY Blood thinner 04/18/20 02/18/22 tamsulosin 0.4 mg capsule 0.4 mg PO DAILY Prostate 04/18/20 02/18/22 cholecalciferol (vitamin D3) 25 4,000 unit PO DAILY Supplement 04/19/20 02/18/22 mcg (1,000 unit) tablet ferrous sulfate 325 mg (65 mg 325 mg PO DAILY Supplement 07/18/20 02/18/22 iron) tablet (Feosol) sitagliptin phosphate 50 mg tablet 50 mg PO BID Diabetes 08/30/20 02/18/22 glipizide 10 mg tablet 10 mg PO DAILY Diabetes 10/28/20 02/18/22 aspirin 81 mg tablet,delayed 81 mg PO DAILY antiplatelet 08/17/21 02/18/22 release atorvastatin 40 mg tablet 1 tab PO DAILY Cholesterol 08/17/21 02/18/22 furosemide 20 mg tablet 1 tab PO DAILY Fluid 08/17/21 02/18/22 liraglutide 0.6 mg/0.1 mL (18 mg/3 1.8 units SQ DIRECTED Diabetes 08/17/21 02/18/22 mL) subcutaneous pen injector metoprolol succinate 50 mg 50 mg PO DAILY Heartburn 08/17/21 02/18/22 tablet,extended release 24 hr Allergies Allergy/AdvReac Type Severity Reaction Status Date / Time Penicillins Allergy Intermediate Verified 02/18/22 11:42 doxycycline Allergy Unknown Verified 02/18/22 11:42 [facility] Medical History (Updated 03/21/22 @ 17:54 by Herber Henderson MD) Diabetes mellitus, type 2 Palpitations Social History (Updated 03/21/22 @ 12:57 by Bernie Scott RN) Smoking Status: Never smoker alcohol intake: never substance use type: denies use curr
== END 2022-03-21 18:10 | disposition home or self-care (01) ==
LOC: UTC 13:54 → ER 13:55
PROVIDERS: Nurse Practitioner; Emergency Provider Student in an Organized Health Care Education/Training Program; PCP Family Medicine
DX: J06.9 Acute upper respiratory infection, unspecified (principal); Z79.82 Long term (current) use of aspirin; Z79.899 Other long term (current) drug therapy; N18.4 Chronic kidney disease, stage 4 (severe); E11.9 Type 2 diabetes mellitus without complications; D64.9 Anemia, unspecified; M19.90 Unspecified osteoarthritis, unspecified site
CPT/HCPCS: 71045; 80053; 81001; 82962; 83735; 85025; 86140; 99283; C9803; U0003; U0005

== ENCOUNTER → 2022-06-05 12:55 | Outpatient (CLI) | payer BC, SELFPAY ==
[2022-06-05 13:11] LABS: Microscopic, Urine URINE MICROSCOPIC (MICROSCOPIC)
[2022-06-05 13:46] LABS: Appearance,Urine CLEAR (Clear); Basophils % 0.7 % (0.1-2.0); Bilirubin,Urine Negative (Negative); Blood, Urine 1+ (Negative); Color,Urine YELLOW (Yellow); Eosinophils # 0.2 K/mm3 (0.0-0.4); Eosinophils % 3.8 % (0.1-12.0); Glucose,Urine (UA) 2+ (Negative); Hematocrit 29.9 % (42.0-52.0); Hemoglobin 9.8 g/dL (14.1-18.0); Ketones,Urine Negative (Negative); Leukocyte Esterase,Urine Negative (Negative); Lymphocytes # 0.7 K/mm3 (0.7-4.5); Lymphocytes % 15.5 % (10-50); Mean Corpuscular HGB Conc 32.9 g/dL (31.8-35.4); Mean Corpuscular Hemoglobin 32.6 pg (27.0-31.2); Mean Platelet Volume 7.5 fl (7.4-10.4); Monocytes # 0.3 K/mm3 (0.1-1.0); Monocytes % 6.4 % (1.7-9.3); Neutrophils # 3.1 K/mm3 (1.8-7.8); Neutrophils % 73.6 % (37.0-80.0); Nitrate,Urine Negative (Negative); PH,Urine 5.5 (5.0-8.5); Platelet Count 150 K/mm3 (142-424); Protein,Urine 2+ (Negative); Red Blood Count 3.02 M/mm3 (4.60-6.20); Red Cell Distribution Width 13.9 % (11.5-17.5); Specific Gravity, Urine 1.015 (1.005-1.030); Urobilinogen,Urine 0.2 EU/dl (0.2); White Blood Count 4.2 K/mm3 (4.8-10.8)
[2022-06-05 14:02] LABS: Bacteria,Urine Trace /lpf; RBC,Urine Occasional #/hpf (0-3); WBC,Urine Occasional #/hpf (0-3)
[2022-06-05 14:05] LABS: Albumin Level 3.7 g/dl (3.5-5.0); Chloride 108 mmol/L (98-107); Potassium 5.1 mmoL/L (3.5-5.1); Sodium 138 mmol/L (136-145)
[2022-06-05 14:07] LABS: Blood Urea Nitrogen 48 mg/dl (9-20); Estimated Glomerular Filt Rate 18 ml/min (>60); GFR (African American) 21 ML/MIN (>60)
[2022-06-05 14:08] LABS: Anion Gap 14.1 mEq/L (5-15); Calcium 7.7 mg/dl (8.4-10.2); Carbon Dioxide 21 mmol/L (22.0-30.0); Glucose 283 mg/dl (74-100); Phosphorous 4.9 mg/dl (2.5-4.5)
[2022-06-05 14:18] LABS: Creatinine,Urine Random 34 mg/dL (Not Estab.)
== END ==
PROVIDERS: PCP Family Medicine; Visit Provider Internal Medicine Nephrology
DX: N28.9 Disorder of kidney and ureter, unspecified (principal)
CPT/HCPCS: 36415; 80069; 81001; 82570; 84155; 85025

== ENCOUNTER 2022-06-25 17:27 | Emergency (ER) | payer BC, SELFPAY ==
--- NOTE | 2022-06-25 18:28 | EXP.UTC ---
Discharge Plan Disposition Patient Disposition: Home, Self-Care Condition: Good Prescriptions Prescriptions: New azithromycin [Zithromax] 250 mg tablet 250 mg PO UD DOSE PK Qty: 6 0RF Rx Instructions: Take two (2) tablets today, then one (1) tablet days #2 thru #5 ofloxacin 0.3 % drops See Rx Instructions .ROUTE .COMPLEX Qty: 5 0RF Rx Instructions: put 1-2 drps into affected eye(s) every 2-4 h x 2 days, then 1-2 drps 4 times/day days 3-7 ofloxacin 0.3 % drops See Rx Instructions .ROUTE .COMPLEX Qty: 5 0RF Rx Instructions: put 2 drps into both eyes every 2 h x 2 days, then 1 drp 4 times/day days 3-7 No Action ferrous sulfate [Feosol] 325 mg (65 mg iron) tablet 325 mg PO DAILY glipizide 10 mg tablet 10 mg PO DAILY clopidogrel 75 MG tablet 75 mg PO DAILY tamsulosin 0.4 MG capsule 0.4 mg PO DAILY cholecalciferol (vitamin D3) 25 MCG tablet 4,000 unit PO DAILY sitagliptin phosphate 50 mg tablet 50 mg PO BID atorvastatin 40 MG tablet 1 tab PO DAILY Rx Instructions: TAKE ONE TABLET BY MOUTH DAILY metoprolol succinate 50 MG tablet extended release 24 hr 50 mg PO DAILY Rx Instructions: TAKE ONE TABLET BY MOUTH DAILY aspirin 81 MG tablet,delayed release (DR/EC) 81 mg PO DAILY furosemide 20 MG tablet 1 tab PO DAILY Rx Instructions: TAKE ONE TABLET BY MOUTH DAILY liraglutide 0.6 MG/0.1 ML pen injector 1.8 units SQ DIRECTED Referrals Follow up/Referrals: Lamont Rivero MD [Primary Care Provider] - See instructions Activity Restrictions/Add. Instructions Additional Instructions/Restrictions: Use the eye drops as directed. Strict hand washing in the house hold, because conjunctivitis is very contagious. Follow up with your regular doctor. GO TO THE ER FOR ANY WORSENING SYMPTOMS OR CONCERNS Clinical Impressions Clinical Impression: Conjunctivitis, Sinusitis Instructions Patient Instructions: How to Instill Eye Drops, Sinusitis, DI for Sinusitis Discharge ED Provider: King Hua [facility] General Stated complaint: poss allergy inf Time Seen by Provider: 06/25/22 18:28 History of Present Illness Provider Complaint: He states that for the past 2 days he has had bilateral eye irritation and matting. He denies any injury or foreign body. 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 Related Data Home Medications Medication Instructions Recorded Confirmed clopidogrel 75 mg tablet 75 mg PO DAILY Blood thinner 04/18/20 02/18/22 tamsulosin 0.4 mg capsule 0.4 mg PO DAILY Prostate 04/18/20 02/18/22 cholecalciferol (vitamin D3) 25 4,000 unit PO DAILY Supplement 04/19/20 02/18/22 mcg (1,000 unit) tablet ferrous sulfate 325 mg (65 mg 325 mg PO DAILY Supplement 07/18/20 02/18/22 iron) tablet (Feosol) sitagliptin phosphate 50 mg tablet 50 mg PO BID Diabetes 08/30/20 02/18/22 glipizide 10 mg tablet 10 mg PO DAILY Diabetes 10/28/20 02/18/22 aspirin 81 mg tablet,delayed 81 mg PO DAILY antiplatelet 08/17/21 02/18/22 release atorvastatin 40 mg tablet 1 tab PO DAILY Cholesterol 08/17/21 02/18/22 furosemide 20 mg tablet 1 tab PO DAILY Fluid 08/17/21 02/18/22 liraglutide 0.6 mg/0.1 mL (18 mg/3 1.8 units SQ DIRECTED Diabetes 08/17/21 02/18/22 mL) subcutaneous pen injector metoprolol succinate 50 mg 50 mg PO DAILY Heartburn 08/17/21 02/18/22 tablet,extended release 24 hr Previous Rx's Medication Instructions Recorded azithromycin 250 mg tablet 250 mg PO UD DOSE PK #6 tabs 06/25/22 (Zithromax) ofloxacin 0.3 % eye drops See Rx Instructions ophthalmic 06/25/22 (eye) .COMPLEX #5 mL ofloxacin 0.3 % eye drops See Rx Instructions ophthalmic 06/25/22 (eye) .COMPLEX #5 mL Allergies Allergy/AdvReac Type Severity Reaction Status Date / Time Penicillins Allergy Intermediate Verified 02/18/22 11:42
[2022-06-25 18:30] VITALS: BP 138/75; PULSE 69; RESP 18; TEMP 36.8; O2SAT 98; BMI 26.4
[2022-06-25 19:19] VITALS: BP 138/75; PULSE 69; RESP 18; TEMP 36.8; O2SAT 98
[2022-06-26 19:05] LABS: UTC Strep Screen (Rapid) Negative (Negative)
== END 2022-06-25 19:20 | disposition home or self-care (01) ==
PROVIDERS: Emergency Provider Nurse Practitioner Family; PCP Family Medicine
DX: H10.9 Unspecified conjunctivitis (principal); J32.9 Chronic sinusitis, unspecified
CPT/HCPCS: 87880; 99212; 99213; G0463

== ENCOUNTER → 2022-08-21 07:53 | Outpatient (CLI) | payer BC, SELFPAY ==
[2022-08-21 08:25] LABS: Basophils % 0.6 % (0.1-2.0); Eosinophils # 0.2 K/mm3 (0.0-0.4); Eosinophils % 4.3 % (0.1-12.0); Hematocrit 31.3 % (42.0-52.0); Lymphocytes # 0.9 K/mm3 (0.7-4.5); Lymphocytes % 19.1 % (10-50); Mean Corpuscular Hemoglobin 31.4 pg (27.0-31.2); Mean Platelet Volume 8.7 fl (7.4-10.4); Monocytes # 0.4 K/mm3 (0.1-1.0); Monocytes % 7.3 % (1.7-9.3); Neutrophils # 3.4 K/mm3 (1.8-7.8); Neutrophils % 68.7 % (37.0-80.0); Platelet Count 187 K/mm3 (142-424); Red Blood Count 3.19 M/mm3 (4.60-6.20); Red Cell Distribution Width 13.7 % (11.5-17.5)
[2022-08-21 08:39] LABS: Creatinine,Urine Random 27 mg/dL (Not Estab.)
[2022-08-21 08:45] LABS: Albumin Level 3.9 g/dl (3.5-5.0); Chloride 105 mmol/L (98-107); Potassium 4.4 mmoL/L (3.5-5.1); Sodium 138 mmol/L (136-145)
[2022-08-21 08:47] LABS: Blood Urea Nitrogen 57 mg/dl (9-20); Estimated Glomerular Filt Rate 16 ml/min (>60); GFR (African American) 20 ML/MIN (>60)
[2022-08-21 08:48] LABS: Anion Gap 17.4 mEq/L (5-15); Calcium 8.2 mg/dl (8.4-10.2); Carbon Dioxide 20 mmol/L (22.0-30.0); Glucose 134 mg/dl (74-100); Iron 83 ug/dL (49-181); Phosphorous 4.5 mg/dl (2.5-4.5)
[2022-08-21 08:58] LABS: Total Iron Binding Capacity 250 ug/dL (261-462)
[2022-08-21 09:23] LABS: Ferritin 97.8 ng/ml (17.9-464)
[2022-08-21 09:31] LABS: Intact Parathyroid Hormone 468.1 pg/mL (7.5-53.5)
[2022-08-24 20:19] LABS: Immunoglobulin A, Qn 399 mg/dL (61-437); Immunoglobulin G, Qn 1039 mg/dL (603-1613); Immunoglobulin M, Qn 67 mg/dL (15-143)
[2022-08-30 19:25] LABS: 1,25 Dihydroxy Vitamin D 12 pg/mL (.); 1,25-Dihydroxy, Vitamin D-2 <10 pg/mL (.); 1,25-Dihydroxy, Vitamin D-3 <10 pg/mL (.)
== END ==
PROVIDERS: PCP Family Medicine
DX: D64.9 Anemia, unspecified (principal); N18.4 Chronic kidney disease, stage 4 (severe)
CPT/HCPCS: 36415; 80069; 82570; 82652; 82728; 82784; 83540; 83550; 83970; 84155; 85025; 86334; 86335

== ENCOUNTER 2022-10-10 13:10 | Emergency (ER) | payer BC, SELFPAY ==
[2022-10-10 13:11] VITALS: BP 132/55; PULSE 64; RESP 18; TEMP 36.6; O2SAT 100; BMI 27.1
--- NOTE | 2022-10-10 13:33 | ECG_ITS ---
APPROVED REPORT Exam: Resting ECG HR:64 bpm ECG Measurements Heart Rate 64 AXES MD 286 P 96 QRSd 104 QRS 16 QT 407 T 52 QTc 416 Conclusion SINUS RHYTHM WITH FIRST DEGREE AV BLOCK NONSPECIFIC ST & T-WAVE ABNORMALITY ABNORMAL ECG UNCONFIRMED REPORT Electronically signed by : Mark Rothman MD 10/11/2022 11:32:38
--- NOTE | 2022-10-10 13:34 | XR_ITS ---
PROCEDURE INFORMATION: Exam: XR Chest Exam date and time: 10/10/2022 1:30 PM Age: 81 years old Clinical indication: Other: Weakness TECHNIQUE: Imaging protocol: Radiologic exam of the chest. Views: 2 views. COMPARISON: CR XR CHEST PORTABLE 03/21/2022 2:43 PM FINDINGS: Lungs: Hazy airspace opacity in the right middle lobe. Pleural spaces: Unremarkable. No pleural effusion. No pneumothorax. Heart/Mediastinum: Unremarkable. No cardiomegaly. Bones/joints: Unremarkable. IMPRESSION: Findings may represent atelectasis versus right middle lobe pneumonia.
[2022-10-10 14:02] LABS: Apearance,Urine Clear (Clear); Color,Urine Yellow (Yellow); PH,Urine 5.5 (5.0-8.5)
[2022-10-10 14:03] LABS: Bilirubin,Urine Negative (Negative); Blood, Urine Trace (Negative); Glucose,Urine (UA) 500 (Negative); Ketones,Urine Negative (Negative); Protein,Urine 3+ (Negative); UTC Leukocyte Esterase,Urine Negative (Negative); UTC Nitrate,Urine Negative (Negative); Urobilinogen,Urine 0.2 EU/dl (0.2)
[2022-10-10 14:07] LABS: Chloride 109 mmol/L (98-107); Potassium 4.6 mmoL/L (3.5-5.1); Sodium 139 mmol/L (136-145)
[2022-10-10 14:10] LABS: Anion Gap 14.6 mEq/L (5-15); Blood Urea Nitrogen 47 mg/dl (9-20); Carbon Dioxide 20 mmol/L (22.0-30.0); Creatinine Clearance Estimated 21 mL/min (50-200); Estimated Glomerular Filt Rate 17 ml/min (>60); GFR (African American) 20 ML/MIN (>60); Glucose 188 mg/dl (74-100)
[2022-10-10 14:19] LABS: Basophils % 0.4 % (0.1-2.0); Eosinophils # 0.2 K/mm3 (0.0-0.4); Eosinophils % 4.2 % (0.1-12.0); Hematocrit 27.7 % (42.0-52.0); Hemoglobin 9.1 g/dL (14.1-18.0); Lymphocytes # 0.6 K/mm3 (0.7-4.5); Lymphocytes % 12.6 % (10-50); Mean Corpuscular HGB Conc 32.8 g/dL (31.8-35.4); Mean Corpuscular Hemoglobin 31.5 pg (27.0-31.2); Mean Corpuscular Volume 96.1 fl (80-94); Mean Platelet Volume 8.5 fl (7.4-10.4); Monocytes # 0.3 K/mm3 (0.1-1.0); Monocytes % 6.1 % (1.7-9.3); Neutrophils # 3.9 K/mm3 (1.8-7.8); Neutrophils % 76.7 % (37.0-80.0); Platelet Count 167 K/mm3 (142-424); Red Blood Count 2.88 M/mm3 (4.60-6.20); Red Cell Distribution Width 13.6 % (11.5-17.5)
--- NOTE | 2022-10-10 14:19 | EXP.UTC ---
Discharge Plan Disposition Patient Disposition: Still a Patient Condition: Fair Prescriptions Prescriptions: New cefdinir 300 mg capsule 300 mg PO BID 10 Days Qty: 20 0RF benzonatate 100 mg capsule 100 mg PO TID PRN (Reason: cough) 7 Days Qty: 20 0RF azithromycin 250 mg tablet See Rx Instructions .ROUTE .COMPLEX Qty: 6 0RF Rx Instructions: For 250 mg dose pack: take 500 mg today (day 1), then 250 mg for 4 days (days 2-5) No Action ferrous sulfate [Feosol] 325 mg (65 mg iron) tablet 325 mg PO BID promethazine 6.25 mg/5 mL syrup See Rx Instructions PO HS Rx Instructions: 5ml orally at bedtime nightly; glipizide 10 mg tablet 10 mg PO DAILY clopidogrel 75 MG tablet 75 mg PO DAILY tamsulosin 0.4 MG capsule 0.4 mg PO DAILY cholecalciferol (vitamin D3) 25 MCG tablet 4,000 unit PO DAILY sitagliptin phosphate 50 mg tablet 50 mg PO BID atorvastatin 40 MG tablet 1 tab PO DAILY Rx Instructions: TAKE ONE TABLET BY MOUTH DAILY metoprolol succinate 50 MG tablet extended release 24 hr 50 mg PO DAILY Rx Instructions: TAKE ONE TABLET BY MOUTH DAILY aspirin 81 MG tablet,delayed release (DR/EC) 81 mg PO DAILY furosemide 20 MG tablet 1 tab PO DAILY Rx Instructions: TAKE ONE TABLET BY MOUTH DAILY liraglutide 0.6 MG/0.1 ML pen injector 1.8 units SQ DIRECTED Referrals Follow up/Referrals: Lamont Rivero MD [Primary Care Provider] - See instructions Activity Restrictions/Add. Instructions Additional Instructions/Restrictions: Your evaluation today for generalized weakness and unresolving cough did not demonstrate any acute abnormalities aside from a new consolidation right middle lobe consistent with community-acquired pneumonia. You recently were on cefuroxime and prednisone we have escalated your antibiotics to include azithromycin and cefdinir. You have also been prescribed Tessalon Perles as needed for cough symptoms. Please return to the emergency part with any worsening shortness of breath or other concerns and make sure to follow-up with primary care doctor within 1 week. Clinical Impressions Clinical Impression: Anemia, Fatigue, Renal failure Discharge ED Provider: King Hua [facility] HPI General Chief complaint: Weakness Stated complaint: Weakness Mode of Arrival: Ambulatory Source of Information: Patient Limitations: No Limitations Time Seen by Provider: 10/10/22 14:44 HEENT Symptoms (Recalled from RN notes): No Resp Symptoms (Recalled from RN notes): No Skin Symptoms (Recalled from RN notes): No MS Symptoms (Recalled from RN notes): Yes Functional Status (Recalled from RN notes): wnl History of Present Illness Provider Complaint: Patient states he feels lifeless, is slow to get up and can only walk a short distance. States he has been feeling this way for about 1 week now. Related Data Home Medications Medication Instructions Recorded Confirmed clopidogrel 75 mg tablet 75 mg PO DAILY Blood thinner 04/18/20 07/17/22 tamsulosin 0.4 mg capsule 0.4 mg PO DAILY Prostate 04/18/20 07/17/22 cholecalciferol (vitamin D3) 25 4,000 unit PO DAILY Supplement 04/19/20 07/17/22 mcg (1,000 unit) tablet sitagliptin phosphate 50 mg tablet 50 mg PO BID Diabetes 08/30/20 07/17/22 glipizide 10 mg tablet 10 mg PO DAILY Diabetes 10/28/20 07/17/22 aspirin 81 mg tablet,delayed 81 mg PO DAILY antiplatelet 08/17/21 07/17/22 release atorvastatin 40 mg tablet 1 tab PO DAILY Cholesterol 08/17/21 07/17/22 furosemide 20 mg tablet 1 tab PO DAILY Fluid 08/17/21 07/17/22 liraglutide 0.6 mg/0.1 mL (18 mg/3 1.8 units SQ DIRECTED Diabetes 08/17/21 07/17/22 mL) subcutaneous pen injector metoprolol succinate 50 mg 50 mg PO DAILY Heartburn 08/17/21 07/17/22 tablet,extended release 24 hr ferrous sulfate 325 mg (65 mg 325 mg PO BID Supplement 07/17/22 07/17/22 iron) tablet (Feosol) promethazine 6.25 mg/5
[2022-10-10 14:42] LABS: Thyroid Stimulating Hormone 0.74 uIU/mL (0.465-4.68)
[2022-10-10 14:44] VITALS: BP 133/63; PULSE 64; RESP 18; TEMP 36.6; O2SAT 98; BMI 26.4
--- NOTE | 2022-10-10 14:44 | HMH.EDGENADL ---
Discharge Plan Disposition Patient Disposition: Home, Self-Care Prescriptions Prescriptions: New cefdinir 300 mg capsule 300 mg PO BID 10 Days Qty: 20 0RF benzonatate 100 mg capsule 100 mg PO TID PRN (Reason: cough) 7 Days Qty: 20 0RF azithromycin 250 mg tablet See Rx Instructions .ROUTE .COMPLEX Qty: 6 0RF Rx Instructions: For 250 mg dose pack: take 500 mg today (day 1), then 250 mg for 4 days (days 2-5) No Action ferrous sulfate [Feosol] 325 mg (65 mg iron) tablet 325 mg PO BID promethazine 6.25 mg/5 mL syrup See Rx Instructions PO HS Rx Instructions: 5ml orally at bedtime nightly; glipizide 10 mg tablet 10 mg PO DAILY clopidogrel 75 MG tablet 75 mg PO DAILY tamsulosin 0.4 MG capsule 0.4 mg PO DAILY cholecalciferol (vitamin D3) 25 MCG tablet 4,000 unit PO DAILY sitagliptin phosphate 50 mg tablet 50 mg PO BID atorvastatin 40 MG tablet 1 tab PO DAILY Rx Instructions: TAKE ONE TABLET BY MOUTH DAILY metoprolol succinate 50 MG tablet extended release 24 hr 50 mg PO DAILY Rx Instructions: TAKE ONE TABLET BY MOUTH DAILY aspirin 81 MG tablet,delayed release (DR/EC) 81 mg PO DAILY furosemide 20 MG tablet 1 tab PO DAILY Rx Instructions: TAKE ONE TABLET BY MOUTH DAILY liraglutide 0.6 MG/0.1 ML pen injector 1.8 units SQ DIRECTED Referrals Follow up/Referrals: Lamont Rivero MD [Primary Care Provider] - See instructions Activity Restrictions/Add. Instructions Additional Instructions/Restrictions: Your evaluation today for generalized weakness and unresolving cough did not demonstrate any acute abnormalities aside from a new consolidation right middle lobe consistent with community-acquired pneumonia. You recently were on cefuroxime and prednisone we have escalated your antibiotics to include azithromycin and cefdinir. You have also been prescribed Tessalon Perles as needed for cough symptoms. Please return to the emergency part with any worsening shortness of breath or other concerns and make sure to follow-up with primary care doctor within 1 week. Clinical Impressions Clinical Impression: CAP (community acquired pneumonia), CKD (chronic kidney disease), Generalized weakness, Chronic anemia Discharge ED Provider: King Hua [facility] General Chief complaint: Weakness Stated complaint: Weakness Time Seen by Provider: 10/10/22 14:44 Mode of Arrival: Ambulatory Source of Information: Patient Limitations: No Limitations Description of Symptoms (Recalled from ER Triage Doc. by RN): Patient states he feels lifeless, is slow to get up and can only walk a short distance. States he has been feeling this way for about 1 week now. History of Present Illness HPI narrative: Patient is an 81-year-old male presenting with generalized weakness and cough for the last month. He was diagnosed with pneumonia a year ago and has had cough this time for a month he recently has been on cefuroxime and prednisone per the side pharmacy records. States that he cannot get his cough to go away. When he was at the urgent treatment clinic where they initiated a significant work-up and found that he had chronic kidney disease which is at his baseline chronic anemia which is also at his baseline. Patient specifically denies any shortness of breath at rest right now or any chest pain or exertional chest pain. He has a history of coronary artery disease chronic disease and anemia that he is aware of. He is being followed by his primary care physician. States that he just feels like he is moving very slow. Chest x-ray was obtained prior to being sent over to the emergency department which showed a right middle lobe consolidation concerning for pneumonia. Related Data Home Medications Medication Instructions Recorded Confirmed clopidogrel 75 mg tablet 75 mg PO DAILY Blood thinner 04/18/20 07/17/22 tamsulosin
--- NOTE | 2022-10-10 14:50 | PC.NURSE ---
DR JACKSON AT BEDSIDE
[2022-10-10 15:10] VITALS: BP 153/69; PULSE 60; RESP 18; TEMP 36.6; O2SAT 97
== END 2022-10-10 15:10 | disposition still patient (30) ==
LOC: UTC 13:13 → ER 14:36
PROVIDERS: Emergency Provider Nurse Practitioner Family; PCP Family Medicine
DX: J18.9 Pneumonia, unspecified organism (principal); R53.1 Weakness; E11.22 Type 2 diabetes mellitus with diabetic chronic kidney disease; N18.9 Chronic kidney disease, unspecified; D64.9 Anemia, unspecified
CPT/HCPCS: 71046; 80048; 81003; 84443; 85025; 87086; 93005; 99285

== ENCOUNTER 2023-01-11 14:35 | Emergency (ER) | payer BC, SELFPAY ==
[2023-01-11 14:52] VITALS: BP 117/62; PULSE 72; RESP 16; TEMP 36.8; O2SAT 99; BMI 26.4
--- NOTE | 2023-01-11 15:09 | EXP.UTC ---
Discharge Plan Disposition Patient Disposition: Home, Self-Care Condition: Good Prescriptions Prescriptions: New cephalexin 500 mg capsule 500 mg PO QID Qty: 40 0RF No Action ferrous sulfate [Feosol] 325 mg (65 mg iron) tablet 325 mg PO BID promethazine 6.25 mg/5 mL syrup See Rx Instructions PO HS Rx Instructions: 5ml orally at bedtime nightly; glipizide 10 mg tablet 10 mg PO DAILY clopidogrel 75 MG tablet 75 mg PO DAILY tamsulosin 0.4 MG capsule 0.4 mg PO DAILY cholecalciferol (vitamin D3) 25 MCG tablet 4,000 unit PO DAILY sitagliptin phosphate 50 mg tablet 50 mg PO BID atorvastatin 40 MG tablet 1 tab PO DAILY Rx Instructions: TAKE ONE TABLET BY MOUTH DAILY metoprolol succinate 50 MG tablet extended release 24 hr 50 mg PO DAILY Rx Instructions: TAKE ONE TABLET BY MOUTH DAILY aspirin 81 MG tablet,delayed release (DR/EC) 81 mg PO DAILY furosemide 20 MG tablet 1 tab PO DAILY Rx Instructions: TAKE ONE TABLET BY MOUTH DAILY liraglutide 0.6 MG/0.1 ML pen injector 1.8 units SQ DIRECTED Referrals Follow up/Referrals: Lamont Rivero MD [Primary Care Provider] - See instructions Activity Restrictions/Add. Instructions Additional Instructions/Restrictions: Keep the affected area clean and dry. Follow up with your regular doctor. Take the antibiotics as directed and apply the topical antibiotics as directed. Apply warm wet compresses to the affected area three or four times per day. GO TO THE ER FOR ANY WORSENING SYMPTOMS Clinical Impressions Clinical Impression: Cellulitis of left leg Instructions Patient Instructions: Cellulitis, Cephalexin Discharge ED Provider: King Hua [facility] General Stated complaint: poss spider bite, LT leg pain Mode of Arrival: Ambulatory Source of Information: Patient Limitations: No Limitations Time Seen by Provider: 01/11/23 15:09 Description of Symptoms (Recalled from Triage Doc. by RN): possible spider bite to left lower leg 2.5 weeks ago, painful to walk, bruised HEENT Symptoms (Recalled from RN notes): No Resp Symptoms (Recalled from RN notes): No Skin Symptoms (Recalled from RN notes): Yes MS Symptoms (Recalled from RN notes): No Functional Status (Recalled from RN notes): na History of Present Illness Provider Complaint: He states that for the past 2 weeks he has had a bug bite on his left lower leg. He states that he feels like it is getting worse and starting to swell. He denies any fever/chills. He is a diabetic. Related Data Home Medications Medication Instructions Recorded Confirmed clopidogrel 75 mg tablet 75 mg PO DAILY Blood thinner 04/18/20 07/17/22 tamsulosin 0.4 mg capsule 0.4 mg PO DAILY Prostate 04/18/20 07/17/22 cholecalciferol (vitamin D3) 25 4,000 unit PO DAILY Supplement 04/19/20 07/17/22 mcg (1,000 unit) tablet sitagliptin phosphate 50 mg tablet 50 mg PO BID Diabetes 08/30/20 07/17/22 glipizide 10 mg tablet 10 mg PO DAILY Diabetes 10/28/20 07/17/22 aspirin 81 mg tablet,delayed 81 mg PO DAILY antiplatelet 08/17/21 07/17/22 release atorvastatin 40 mg tablet 1 tab PO DAILY Cholesterol 08/17/21 07/17/22 furosemide 20 mg tablet 1 tab PO DAILY Fluid 08/17/21 07/17/22 liraglutide 0.6 mg/0.1 mL (18 mg/3 1.8 units SQ DIRECTED Diabetes 08/17/21 07/17/22 mL) subcutaneous pen injector metoprolol succinate 50 mg 50 mg PO DAILY Heartburn 08/17/21 07/17/22 tablet,extended release 24 hr ferrous sulfate 325 mg (65 mg 325 mg PO BID Supplement 07/17/22 07/17/22 iron) tablet (Feosol) promethazine 6.25 mg/5 mL oral See Rx Instructions PO HS 07/17/22 07/17/22 syrup Previous Rx's Medication Instructions Recorded cephalexin 500 mg capsule 500 mg PO QID #40 caps 01/11/23 Allergies Allergy/AdvReac Type Severity Reaction Status Date / Time Penicillins Allergy Intermediate Verified 01/11/23 14:43 doxycycline A
[2023-01-11 15:27] VITALS: BP 117/62; PULSE 72; RESP 16; TEMP 36.8
== END 2023-01-11 15:29 | disposition home or self-care (01) ==
PROVIDERS: Emergency Provider Nurse Practitioner Family; PCP Family Medicine
DX: L03.116 Cellulitis of left lower limb (principal); E11.9 Type 2 diabetes mellitus without complications; Z79.84 Long term (current) use of oral hypoglycemic drugs
CPT/HCPCS: 99212; 99214; G0463

== ENCOUNTER → 2023-02-12 10:52 | Outpatient (CLI) | payer BC, MEDICARE, SELFPAY ==
--- NOTE | 2023-02-12 10:56 | NM_ITS ---
APPROVED REPORT Exam: Nuclear Stress Test Indication: fatigue..pre-op Patient Location: Outpatient Stress Tech: Lottie Nagel [place] Tech:Purvi Robbins DAPHNIEPrincess RT(R)(N) Ht: 5 ft 11 in Wt: 195 lbs HR: 57 bpm BP: 150/61 mmHg BSA: 2.09 m2 Rhythm: NSR TID: 1.11 BMI: 27.1 History: fatigue..pre-op Procedure: Patient received 0.4 mg of intravenous Lexiscan, resting heart rate 57 bpm, resting blood pressure 150/61 mmHg, with Lexiscan maximum heart rate achieved was 85 bpm which is 85 % of the maximum predicted heart rate and blood pressure was 150/61 mmHg. The patient was not able to lay on his abdomen for prone images. Cardiac Stress and Resting SPECT Images: Cardiac Stress and Resting SPECT images were obtained using technetium 99m Myoview 32.3 mCi stress and 10.78 mCi at rest. The patient could not lie on his abdomen. Therefore, prone stress imaging could not be performed. This may affect the diagnostic interpretation of the study findings. Resting and stress imaging in supine position demonstrate a medium sized, moderate, fixed perfusion defect in the inferior LV wall. Gated imaging demonstrates borderline global hypokinesis. There is mild hypokinesis of the inferior LV wall. LVEF is calculated at 49%. Conclusion: Medium sized, moderate, fixed perfusion defect in the inferior LV wall. No evidence of fixed or no evidence of reversible ischemia. Gated imaging demonstrates borderline global hypokinesis. There is mild hypokinesis of the inferior LV wall. LVEF is calculated at 49%. Electronically signed by : Nat Shoemaker MD 02/20/2023 00:22:40
--- NOTE | 2023-02-12 11:39 | CA_ITS ---
APPROVED REPORT EXAM: Comprehensive 2D, Doppler, and color-flow Echocardiogram [employer] Assistant: BLANK Wolfe, RVS Ht: 5 ft 11 in Wt: 195lbs BSA: 2.09 BP: 103/51 mmHg Indications: HTN, HLD,DM,CAD 2D Dimensions IVSd 1.39 cm LA Volume 70.30 mL PWd 1.19 cm LA Volume Index 32.90 mL/m2 (M/F) 16-34 LVDd 5.01 cm Aortic Root 3.36 cm Left Atrium 3.71 cm LVOT 2.05 cm (M/F) 1.5-2.5 M-Mode Dimensions RVDd 2.41 cm (0.9-2.6) LA Diam 3.83 cm (1.9-4.0) LVDd 5.27 cm (3.5-5.7) Ao Diam 3.67 cm (2.0-3.7) LVDs 3.42 cm (3.5-5.7) IVSd 1.37 cm (0.6-1.1) PWd 1.37 cm (0.6-1.1) EF (Teich) 64.00% EPSs 0.32 cm FS 35.10% EDV (Teich) 133.60 mL TAPSE 2.65 (<1.7) ESV (Teich) 48.10 mL LV Diastology E Decel Time 280.00 (160-240 msec) E/A Ratio 0.81 MED E' 3.90 (< 7 cm/sec) MED A' 7.80 cm/s E'/MED E' Ratio 27.90 (>14) LAT E' 5.80 (<10 cm/sec) LAT A' 9.30 cm/s E/LAT E' Ratio 18.76 (>14) Aortic Valve LVOT Max 78.00 (70-110 cm/s) LVOT VTI 20.78 cm AoV Peak Salo. 142.00 (50-130 cm/s) AO Peak GR. 8.10 mmHg AO Mean GR. 4.20 (<5 mmHg) AO VTI 36.59 (18-25 cm) Mitral Valve MV A Velocity 134.00 (40-130 cm/s) E/A Ratio 0.81 MV Decel. Time 280.00 (160-240 ms) Pulmonary Valve PV Peak Velocity 84.00 (50-150 cm/s) IN End VMAX 156.00 cm/s Tricuspid Valve TR P. Velocity 201.00 cm/s Left Ventricle The left ventricle is normal size. The left ventricular systolic function is normal. The left ventricular ejection fraction is within the normal range. There is increased LV wall thickness (IVSd 1.4 cm). There is normal LV segmental wall motion. Diastolic function is indeterminate. LVEF is 55% Right Ventricle The right ventricle is normal size. The right ventricular systolic function is normal. Atria The left atrium size is normal. The right atrium size is normal. There is no Doppler evidence of interatrial shunt. Aortic Valve The aortic valve is mildly thickened. There is no aortic valvular stenosis. Mild aortic regurgitation. Mitral Valve There is mild mitral annular calcification. The mitral valve is mildly thickened. No evidence of mitral valve stenosis. Mild mitral regurgitation. Tricuspid Valve The tricuspid valve leaflets are thin and pliable. Mild tricuspid regurgitation. RVSP is 20-25 mmHg. Pulmonic Valve The pulmonary valve is normal in structure. Mild pulmonic regurgitation. Great Vessels The aortic root is normal in size. The ascending aorta is normal in size. IVC is normal in size and collapses >50% with inspiration. Pericardium There is no pericardial effusion. Conclusion Normal biventricular systolic function. Markedly thickened interventricular septal wall thickness (IVSd 1.4-1.5 cm). Mild AI, MR, TR, PI. If clinically indicated, evaluation for infiltrative cardiomyopathy, namely amyloidosis, is indicated (blood work, PYP scan, and cardiac MRI). Electronically signed by : Nat Shoemaker MD 02/16/2023 19:30:01
--- NOTE | 2023-02-12 11:39 | CA_ITS ---
FINAL REPORT TECHNIQUE: Color Doppler, duplex Doppler and avendaño scale sonography of the bilateral neck vasculature was performed. Velocities were measured in the carotid arteries. Stenosis evaluation based on velocity criteria. CLINICAL HISTORY: EMIGDIO, LT ENDARDECTOMY ,HLD,DM FINDINGS: The peak systolic velocity of the right common carotid artery is 120.8 cm/sec and internal carotid artery 138 cm/sec. The diastolic velocity in the internal carotid artery is 33 cm/sec. The ICA/CCA ratio is 1.14. Visually, a moderate amount of plaque is seen. These findings are consistent with less than 50% stenosis. The external carotid artery is patent. The right vertebral artery is patent with antegrade flow. The peak systolic velocity of the left common carotid artery is 121 cm/sec and internal carotid artery 65 cm/sec. The diastolic velocity in the internal carotid artery is 19 cm/sec. The ICA/CCA ratio is 0.5. Visually, a small amount of plaque is seen. These findings are consistent with less than 50% stenosis. The external carotid artery is patent. The left vertebral artery is patent with antegrade flow. IMPRESSION: No evidence of significant carotid stenosis. Bilateral patent vertebral arteries. If indicated, CTA or MRA could further evaluate. Reviewed, Interpreted and Dictated by Yury Veronica III, MD Transcribed by Daniela Bartholomew Authenticated and . [facility]
--- NOTE | 2023-02-12 13:06 | CA_ITS ---
APPROVED REPORT Exam: Pharmacologic Technologist: Lottie Kemp, Ht: 5 ft 11 in Wt: 197 lbs BSA: 2.10 m2 HR: 55 bpm BP: 150/61 mmHg Rhythm: NSR Indications: CAD Medical History Medications: Aspirin,,,,, Metoprolol,,,,, Vitamin D3,,,,, Atorvastatin,,,,, Glipizide,,,,, TAMSULOSIN,,,,, CloPIdogrel,,,,, Sitagliptin,,,,, Liraglutide,,,,, Furosemide,,,,, Feosol,,,,, Stress Test Details Test: LEXISCAN Reason for pharmacologic stress test: physical limitation. HR Resting HR: 57 bpm Max Heart Rate (APMHR): 139 bpm Max HR Achieved: 85 bpm Target HR (85% APMHR): 118 bpm % of APMHR: 61 Recovery HR: 58 bpm HR response to stress: Normal HR response to stress BP Resting BP: 150.0/61.0 mmHg Max BP: 150.0/61.0 mmHg Recovery BP: 138.0/63.0 mmHg ECG Resting ECG: Sinus bradycardia, T wave changes in inferolateral leads Arrhythmia: Frequent PVCs, 1 ventricular triplet, NSVT Clinical Exercise duration: 04:00 min Highest Stage Achieved: Stress ECG Conclusion Symptoms: Mild flushed feeling. No CP. Arrhythmias/Ectopy: Frequent PVC, ventricular triplet, one run of NSVT of 8-10 beats (not captured) ST-T Changes: No significant changes. Conclusion: Nondiagnostic Lexiscan stress test due to baseline abnormalities. One non-sustained run of NSVT lasting 8-10 beats. Myoview images reported separately. Test Summary REST . . . . . . . Resting REST 02:51 . . 57 . 150/ 61 . . Stage 1 01:00 . . 58 . . . . Stage 2 01:00 . . 60 . . . . Stage 3 01:00 . . 58 . 132/ 57 . . Stage 4 01:00 . . 58 . 133/ 56 . Stop exercise at 04:00 RECOVERY 01:00 . . 60 . . . . RECOVERY 02:00 . . 59 . 144/ 62 . . RECOVERY 03:00 . . 58 . 144/ 62 . . RECOVERY 03:22 . . 58 . 138/ 63 . . Electronically signed by : Nat Shoemaker MD 02/20/2023 00:17:03
== END ==
PROVIDERS: PCP Family Medicine; Visit Provider Physician Assistant
DX: I25.10 Atherosclerotic heart disease of native coronary artery without angina pectoris (principal); I13.10 Hypertensive heart and chronic kidney disease without heart failure, with stage 1 through stage 4 chronic kidney disease, or unspecified chronic kidney disease; I77.9 Disorder of arteries and arterioles, unspecified; E78.5 Hyperlipidemia, unspecified; E11.9 Type 2 diabetes mellitus without complications; N18.4 Chronic kidney disease, stage 4 (severe); Z79.84 Long term (current) use of oral hypoglycemic drugs; Z86.73 Personal history of transient ischemic attack (TIA), and cerebral infarction without residual deficits
CPT/HCPCS: 78452; 93017; 93306; 93880; A9502; J2785

== ENCOUNTER 2023-04-04 09:35 | Emergency (ER) | payer BC, MEDICARE, SELFPAY ==
[2023-04-04 09:37] VITALS: BP 116/55; PULSE 63; RESP 16; TEMP 36.8; O2SAT 96; BMI 26.4
[2023-04-04 10:00] VITALS: BP 116/55; PULSE 72; O2SAT 95
--- NOTE | 2023-04-04 10:16 | XR_ITS ---
PROCEDURE INFORMATION: Exam: XR Right Hip Exam date and time: 04/04/2023 10:21 AM Age: 82 years old Clinical indication: Pelvic pain; Additional info: Pain with walking TECHNIQUE: Imaging protocol: Radiologic exam of the right hip. Views: 2 or 3 views hip with pelvis when performed. COMPARISON: CR XR PELVIS 1-2V 08/17/2021 9:35 PM FINDINGS: Bones/joints: Moderate bilateral osteoarthritis. No visible acute fracture or dislocation. Soft tissues: Unremarkable. Vasculature: vascular calcifications noted. IMPRESSION: 1. Moderate bilateral osteoarthritis. 2. No visible acute fracture or dislocation.
--- NOTE | 2023-04-04 10:16 | XR_ITS ---
PROCEDURE INFORMATION: Exam: XR Right Femur Exam date and time: 04/04/2023 10:23 AM Age: 82 years old Clinical indication: Pain; Hip; Right; Additional info: Pain with walking TECHNIQUE: Imaging protocol: Radiologic exam of the right femur. Views: 2 views. COMPARISON: CR Hip R 04/04/2023 10:21 AM FINDINGS: Bones/joints: No visible fracture or dislocation. Soft tissues: Unremarkable. Vasculature: Vascular calcifications noted. IMPRESSION: No visible fracture or dislocation.
--- NOTE | 2023-04-04 10:16 | XR_ITS ---
PROCEDURE INFORMATION: Exam: XR Chest Exam date and time: 04/04/2023 10:17 AM Age: 82 years old Clinical indication: Cough TECHNIQUE: Imaging protocol: Radiologic exam of the chest. Views: 2 views. COMPARISON: CR XR CHEST 2V 10/10/2022 1:30 PM FINDINGS: Lungs: No evidence of pneumonia or interstitial edema. Pleural spaces: Unremarkable. No pleural effusion. No pneumothorax. Heart/Mediastinum: Unremarkable. No cardiomegaly. Bones/joints: Unremarkable. IMPRESSION: No evidence of pneumonia or interstitial edema.
--- NOTE | 2023-04-04 10:18 | HMH.EDGENADL ---
Discharge Plan Disposition Patient Disposition: Home, Self-Care Chief Complaint: Upper Respiratory Infection Prescriptions Prescriptions: No Action ferrous sulfate [Feosol] 325 mg (65 mg iron) tablet 325 mg PO BID glipizide 10 mg tablet 10 mg PO DAILY metoprolol succinate 25 mg tablet extended release 24 hr 12.5 mg PO DAILY Qty: 30 2RF tamsulosin 0.4 MG capsule 0.4 mg PO DAILY cholecalciferol (vitamin D3) 25 MCG tablet 4,000 unit PO DAILY sitagliptin phosphate 50 mg tablet 50 mg PO BID atorvastatin 40 MG tablet 1 tab PO DAILY Rx Instructions: TAKE ONE TABLET BY MOUTH DAILY aspirin 81 MG tablet,delayed release (DR/EC) 81 mg PO DAILY furosemide 20 MG tablet 1 tab PO DAILY Rx Instructions: TAKE ONE TABLET BY MOUTH DAILY liraglutide 0.6 MG/0.1 ML pen injector 1.8 units SQ DIRECTED Referrals Follow up/Referrals: Lamont Rivero MD [Primary Care Provider] - See instructions Activity Restrictions/Add. Instructions Additional Instructions/Restrictions: At this time it was felt you are safe to be discharged home. If new or worsening symptoms please do not hesitate to return the emergency department. If symptoms persist please follow-up with your family doctor as you are able. Clinical Impressions Clinical Impression: Viral respiratory infection, Acute hip pain, Osteoarthritis Discharge ED Provider: Jhonny Haro General Adult HPI General Chief complaint: Upper Respiratory Infection Stated complaint: cough, congestion, upper right leg pain Time Seen by Provider: 04/04/23 09:50 Mode of Arrival: Ambulatory Source of Information: Patient Limitations: No Limitations Description of Symptoms (Recalled from ER Triage Doc. by RN): 82 yo M presents to ED with c/o cold like symptoms ongoing for the past week. sinus drainage, productive cough. pt also reports pain inbetween right hip and right knee. pt reports symptoms ongoing for 2-3 weeks. History of Present Illness HPI narrative: Patient is a 82-year-old male with past medical history of insulin-dependent diabetes who presents emergency department for evaluation of 2 complaints. 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 He is also noticed over the past week that he has pain over his right lateral hip radiating down to his knee with walking, better with rest. No midline back pain, no trauma, no asymmetric leg swelling, no overlying erythema. No other acute complaints at this time. Related Data Home Medications Medication Instructions Recorded Confirmed tamsulosin 0.4 mg capsule 0.4 mg PO DAILY Prostate 04/18/20 02/18/23 cholecalciferol (vitamin D3) 25 4,000 unit PO DAILY Supplement 04/19/20 02/18/23 mcg (1,000 unit) tablet sitagliptin phosphate 50 mg tablet 50 mg PO BID Diabetes 08/30/20 02/18/23 glipizide 10 mg tablet 10 mg PO DAILY Diabetes 10/28/20 02/18/23 aspirin 81 mg tablet,delayed 81 mg PO DAILY antiplatelet 08/17/21 02/18/23 release atorvastatin 40 mg tablet 1 tab PO DAILY Cholesterol 08/17/21 02/18/23 furosemide 20 mg tablet 1 tab PO DAILY Fluid 08/17/21 02/18/23 liraglutide 0.6 mg/0.1 mL (18 mg/3 1.8 units SQ DIRECTED Diabetes 08/17/21 02/18/23 mL) subcutaneous pen injector ferrous sulfate 325 mg (65 mg 325 mg PO BID Supplement 07/17/22 02/18/23 iron) tablet (Feosol) Previous Rx's Medication Instructions Recorded metoprolol succinate 25 mg 12.5 mg PO DAILY #30 tabs 02/18/23 tablet,extended release 24 hr Allergies Allergy/AdvReac Type Severity Reaction Status Date / Time Penicillins Allergy Intermediate Verified 02/18/23 14:05 doxycycline Allergy Unknown Verified 02/18/23 14:05 [facility] Disclaimer: The information contained in this section may have been updated after the patient was seen, as this information can be updated by other users. Medical History (Reviewed 02/18/23 @ 14:05
--- NOTE | 2023-04-04 10:24 | PC.NURSE ---
COVID/FLU SENT TO LAB
[2023-04-04 10:25] LABS: Coronavirus 19, PCR Not Detected (NotDetected); Influenza A, PCR Not Detected (NotDetected); Influenza B, PCR Not Detected (NotDetected)
[2023-04-04 11:00] VITALS: BP 125/53; PULSE 74; RESP 20; O2SAT 97
[2023-04-04 11:30] VITALS: BP 128/57; PULSE 65; O2SAT 96
[2023-04-04 12:00] VITALS: BP 127/54; PULSE 93; RESP 18; O2SAT 95
[2023-04-04 12:12] VITALS: BP 127/54; PULSE 93; RESP 18; TEMP 36.8; O2SAT 95
== END 2023-04-04 12:14 | disposition home or self-care (01) ==
PROVIDERS: Emergency Provider Emergency Medicine; PCP Family Medicine
DX: M25.551 Pain in right hip (principal); R05.9 Cough, unspecified; J06.9 Acute upper respiratory infection, unspecified; R09.81 Nasal congestion; E11.9 Type 2 diabetes mellitus without complications; Z79.4 Long term (current) use of insulin; Z87.891 Personal history of nicotine dependence
CPT/HCPCS: 71046; 73502; 73552; 87636; 99284